=== PATIENT | male | born 1955 | race Caucasian/White ===

== ENCOUNTER → 2020-04-04 15:01 | Outpatient (CLI) | payer MEDICARE, OTHER, SELFPAY ==
[2020-04-04 14:49] VITALS: BMI 31.6
--- NOTE | 2020-04-04 15:05 | RAD_ITS ---
STUDY: X-RAY CHEST REASON FOR EXAM: Male, 65 years old. COUGH AND WHEEZE X MONTH, NO HX SURGERIES OR CA TECHNIQUE: PA and lateral views of the chest. COMPARISON: None. FINDINGS: Hyperinflation. There is a 6.1 cm x 5.1 cm rounded soft tissue density in the superior segment of the left lower lobe. This may represent either a rounded pneumonia versus a mass. Correlation with a CT scan is recommended. There is no demonstrated pleural abnormality. Normal size heart. Normal mediastinum and jasiel. Normal visualized pulmonary arteries. There is atherosclerotic tortuosity of the aortic arch and descending thoracic aorta. There are degenerative changes of the visualized thoracic spine. Normal visualized ribs, clavicles, and shoulders. There is no demonstrated abnormality of the visualized soft tissue structures of the upper abdomen. RAD/Chest PA and Lateral IMPRESSION: 5.1 cm x 6.1 cm rounded density in the superior segment of the left lower lobe. This now extends either a pneumonic infiltrate versus a mass. Correlation with a CT scan is recommended. Electronically Signed: Erwin Humphreys, at 15:24 EDT , Service support ,
--- NOTE | 2020-04-04 15:05 | RAD_ITS ---
STUDY: X-RAY - SOFT TISSUE NECK REASON FOR EXAM: Male, 65 years old. COUGH, RASPY VOICE AND WHEEZE X MONTH, NO HX SURGERIES OR CA TECHNIQUE: AP and lateral view(s) of the neck were obtained. COMPARISON: None. FINDINGS: Normal visualized nasopharynx, oropharynx, hypopharynx. Normal epiglottis. Normal visualized subglottic tracheal air column. Normal prevertebral soft tissue structures. There are degenerative changes of the cervical spine with cervical spondylosis. Multilevel disc space narrowing. Loss of the normal cervical lordosis. Calcification of the carotid bifurcation on the left. Focal calcification of the posterior nuchal ligament RAD/Neck for Soft Tissue IMPRESSION: Straightening of the normal cervical lordosis with multilevel spondylosis and disc space narrowing. Electronically Signed: Erwin Humphreys, at 15:25 EDT , Service support ,
== END ==
PROVIDERS: PCP Family Medicine; Referring Provider Physician Assistant; Visit Provider Physician Assistant
DX: R06.2 Wheezing (principal); R13.10 Dysphagia, unspecified; J04.0 Acute laryngitis
CPT/HCPCS: 70360; 71046

== ENCOUNTER → 2020-04-11 14:29 | Outpatient (CLI) | payer MEDICARE, OTHER, SELFPAY ==
[2020-04-04 14:49] VITALS: BMI 31.6
--- NOTE | 2020-04-11 14:31 | CT_ITS ---
STUDY: CTA CHEST REASON FOR EXAM: Male, 65 years old. LLL MASS ON CXR, HOARSENESS X 1 MONTH RADIATION DOSAGE (If Supplied By Facility): CTDIvol = ( 16.69 ) mGy, DLP = ( 437.44 ) mGycm TECHNIQUE: The examination was performed with the intravenous administration of 100 CC ISOVUE 370. Post-processing of the angiographic images was performed, with multiplanar reformation and 3D reconstruction. Individualized dose optimization techniques were used for this CT. COMPARISON: None. FINDINGS: Normal enhancement of the main pulmonary artery and right and left pulmonary arteries. Normal enhancement of the bilateral peripheral pulmonary arteries. There is no demonstrated pulmonary embolism. Normal thoracic aorta and visualized great vessels. There is no demonstrated aortic dissection. Normal heart and pericardium. There are calcifications of the coronary arteries. There are abnormal enlarged bulky AP window lymph nodes. To the left of the galo there is a combination of soft tissue densities measuring 2.2 x 2.5 cm highly suspicious for metastatic adenopathy. There is also abnormal soft tissue density in the left perihilar region significantly surrounding the left pulmonary artery heading to the left lower lobe best seen on axial images 142 and 143. There is peribronchial thickening. The lungs are well expanded. The lung windows show underlying emphysema with bleb formation in the upper lobes. There is an area of fibrotic scarring in the posterior right upper lobe and a highly suspicious lobulated soft tissue mass in the left lower lobe measuring 4.6 x 5.1 x 5.9 cm which has a subtle tail that connects it to the pleural surface on axial image 140. This is highly suspicious for a primary lung tumor. No suspicious noncalcified mass or nodule seen elsewhere in the lungs. There is dependent atelectasis in the lung bases. Limited cuts through the upper abdomen do not show a suspicious abnormality Bony structures show degenerative change CT/CTA Chest W/WO Contrast IMPRESSION: No demonstrated PE, or thoracic aortic aneurysm or dissection. Highly suspicious 4.6 x 5.1 x 5.9 cm mass in the superior aspect of the left lower lobe. This is significantly narrowing the left lower lobe pulmonary artery. This is a primary neoplastic process until proven otherwise. Bulky suspicious left perihilar and mediastinal adenopathy. Underlying emphysema with chronic interstitial changes and evidence of chronic bronchitis. No other suspicious noncalcified mass or nodule in either lung field, no organized infiltrate. Degenerative bony changes Electronically Signed: Lucien Lundberg MD at 15:34 EDT , Service support ,
[2020-04-11 14:45] LABS: CREATININE FINGERSTICK 0.8 mg/dL (0.70-1.30); EGFR FINGERSTICK > 60.0000 mL/min (>60)
== END ==
PROVIDERS: PCP Family Medicine; Referring Provider Physician Assistant; Visit Provider Physician Assistant
DX: R91.8 Other nonspecific abnormal finding of lung field (principal)
CPT/HCPCS: 71275; Q9967

== ENCOUNTER 2020-05-11 11:01 | Day surgery (SDC) | payer MEDICARE, OTHER, SELFPAY ==
[2020-04-16 07:50] VITALS: BMI 28.0
--- NOTE | 2020-05-10 09:13 | PCM.HP.STD ---
History of Present Illness Date of Admission: 05/11/20 Chief Complaint: Lung Mass The patient is a 65 year old male who presented initially one month ago to the pulmonary medicine clinic due to the presence of a lung mass. The patient reported that beginning sometime in February he developed a dry cough, rhinorrhea and wheezing, which apparently began shortly after spreading mulch and using spray paint. The patient then went on to develop vocal hoarseness. He utilized a combination of [id number]-[id number] antihistamines which did help somewhat with his symptoms, with the exception of the vocal hoarseness. The patient does have an approximate 69-cppe-zsma smoking history having quit completely in 1996. In addition to his personal smoking history, the patient did grow up in a smoking household. He was previously employed as a parcel post truck driver. In response to the above, the patient was evaluated in the urgent care clinic on April 04 with complaints of laryngitis and cough. As part of his work-up, a plain film chest x-ray was obtained which revealed a 5 x 6 cm masslike density in the left lower lobe. In follow-up, a CTA chest was completed on April 11 which showed no evidence for PE. Nevertheless, there was evidence of bulky mediastinal lymphadenopathy along with a large lobulated mass present in the left lower lobe. Past Medical History Past Medical History (Chronic Problems): Chronic Problems (Last Reviewed 04/16/20 @ 11:04 by Leslie Dunlap) Laryngitis, chronic (Chronic) Medical History: Medical History (Last Reviewed 04/16/20 @ 11:04 by Leslie Dunlap) No pertinent past medical history Z78.9 Allergies prednisone Allergy (Verified 05/03/20 15:53) Unknown Home Medications: Ambulatory Orders Medication Instructions Recorded albuterol sulfate 90 mcg/actuation 1 - 2 puff INHALATION Q6H PRN #8.5 03/28/20 aerosol inhaler g Ascorbic Acid [Vitamin C] 500 mg PO DAILY 05/03/20 Loratadine [Claritin] 10 mg PO DAILY 05/03/20 Multivitamin 1 ea PO DAILY 05/03/20 Graham-3/Dha/Epa/Fish Oil [Fish Oil 1,600 mg PO DAILY 05/03/20 1,600 mg/5 ml Liquid] Surgical History: Surgical History (Last Reviewed 04/16/20 @ 11:04 by Leslie Dunlap) History of arthroscopy of right knee Z98.890 1987 History of back surgery Z98.890 2014 History of cataract extraction Z98.49 left eye, 2018 Smoking Status: Former smoker Review of Systems Constitutional: Denies: Chills, Fever, Weight Change HEENT: Denies: Head Aches, Sinus Congestion, Sinus Drainage Cardiovascular: Denies: Chest Pain, Palpitations Respiratory: Denies: Cough, Shortness of breath at rest, Sputum production Gastrointestinal: Denies: Abdominal Pain, Nausea, Vomiting Genitourinary: Denies: Dysuria Musculoskeletal: Denies: Joint Pain, Joint Tenderness Skin: Denies: Rash, Wounds Neurological: Denies: Numbness, Tingling, Focal weakness Psychiatric: Denies: Anxiety, Depression, Homicidal Ideations, Suicidal Ideations Hematologic/ Lymphatic: Denies: Easy Bruising, Easy Bleeding VTE Information - Inpt Only VTE Present on Admission: No VTE Mechan Device Prophylaxis: None VTE Pharm Prophylaxis ordered?: No Reason prophylaxis not ordered:: Treatment Not Indicated - Physical Exam Vitals/I&O's: Body Mass Index (BMI) 28.0 General: Alert, Cooperative, No apparent distress HEENT: Atraumatic Oral: Moist Mucosa Neck: Supple, Negative Hepatojugular Reflux Lungs: Normal air movement Cardiovascular: Regular rate, Regular Rhythm Abdomen: Bowel Sounds Present, Soft Extremities: No clubbing, No edema Skin: No breakdown Musculoskeletal: No Muscle Wasting Neurological: Neuro grossly intact Psych/Mental Status: Normal Affect Assessment/Plan All Active Problems (Last Reviewed 04/16/20 @ 11:04 by Leslie Dunlap) Mass of lower lobe of left lung (Acute) Reactive airway disease (Acute) Contact with and (suspected) exposure to other hazardous, chiefly nonmedicinal, chemicals (Acute) Assessment & Plan 1. Lung mass R91.8 Plan The patient's most recent CTA chest dated April 11 revealed a sizable left lower lobe lung mass, measuring approximately 5 x 6 cm in size. This mass was associated with bulky mediastinal and left hilar adenopathy. These radiographic findings are certainly concerning for underlying lung malignancy. My suggestion to them was to move forward with direct tissue biopsy (transbronchial needle aspiration) with the assistance of EBUS. Risks and benefits were reviewed and the patient was in agreement to proceed. 2. Nicotine dependence, cigarettes, in remission F17.211 Plan The patient does have an approximate 59-bati-[id number] smoking history, having quit completely in 1996. Ongoing tobacco cessation was strongly recommended.
[2020-05-11] VITALS (7 sets, daily range): BP systolic 109–135; BP diastolic 70–90; PULSE 85–97; RESP 16–20; TEMP 36.8–37.3; O2SAT 94–98; BMI 27.8
--- NOTE | 2020-05-11 | IMM_PTH ---
PATIENT: IVONNE JULIEN LOC: EN U#:[id number] AGE/SX: 65/M ROOM: RE05/11/[address]: Dr. Miguel Camarillo DO : 1955 BED: DIS: 05/11/2020 SPEC #: [id number] RECD: 05/14/20 10:16 STATUS: SOURigo REQ #: [id number] YAZAN: 05/11/20 00:[address]: Miguel Camarillo DEPT: IMMUNOHISTOCHEMISTRY RECD BY: Teresa Baltazar ENTERED: 05/14/20 10:17 SP TYPE: IMMUNO OTHR DR: Dr. Carlos Camarillo DO Tissues: I - Lung, NOS Procedures: NAPSIN A (add) CK20 (add) CK5-6 (add) CK7 (add) CK8 (add) HEP PAR (add) TTF1 (add) Pankeratin (initial) P40 (add) PSAP (add) PHYSICIAN & INSTITUTION [place] [id number] SPECIMEN INFORMATION: Tissue Source: I - EBUS, TBNA, site 4L Clinical Info: Lung mass, mediastinal lymphadenopathy Specimen Number: [id number] I CPT code: 84199, 14735 x10 METHODOLOGY: Deparaffinized sections of prefer/formalin-fixed tissue or PAP/DQ stained slides are incubated with monoclonal/polyclonal antibodies/oligonucleotide probes. Localization is made via biotin free immunoperoxidase method. Appropriate controls are performed and reacted as expected. Results on target cell population are indicated in the following table: RESULTS: ANTIBODY / CLONE RESULT Block I AE1-3 (AE1/AE3/PCK26) positive CK7 (OV-TL12/30) positive CK8 (02bnqkV78) positive CK20 (KS20.8) negative TTF-1 (8G7G3/1) positive Napsin A (Rabbit Polyclonal) positive HepPar (OCh1E5) negative RCC (PN-15) negative PSAP (PASE/4LJ) negative CK5-6 (D5 & 1684) positive, weak P40 (BC28) negative These tests were developed and their performance characteristics determined by [facility]. They may not have been cleared or approved by the U.S. Food and Drug Administration. The FDA has determined that such clearance or approval is not necessary. The above immunohistochemical/dualISH markers are ordered and reviewed by the Pathologist. INTERPRETATION: I. EBUS, TBNA, site 4L: Malignant cells present derived from non-small cell carcinoma, favor adenocarcinoma, consistent with lung primary. SJ:tona 05/15/20
--- NOTE | 2020-05-11 | FLU_PTH ---
PATIENT: IVONNE JULIEN LOC: EN U#:[id number] AGE/SX: 65/M ROOM: RE05/11/[address]: Dr. Miguel Camarillo DO : 1955 BED: DIS: 05/11/2020 SPEC #: [id number] RECD: 05/11/20 13:05 STATUS: SANDRA RE #: [id number] YAZAN: 05/11/20 00:[address]: Miguel Camarillo DEPT: CYTOLOGY RECD BY: Bhargav Wheat ENTERED: 05/11/20 13:07 SP TYPE: Fluid OTHR DR: Dr. Carlos Camarillo DO Tissues: A - Lung, NOS B - Lung, NOS C - Lung, NOS D - Lung, NOS E - Lung, NOS F - Lung, NOS G - Lung, NOS H - Lung, NOS I - Lung, NOS Procedures: FNA Specimen Adequacy Special Stain Group II Surgery Specimen Level IV Cytospin Fluid HEADER OPERATION: EBUS PRE-OP DIAGNOSIS: Lung mass, mediastinal lymphadenopathy TISSUE SUBMITTED: A - EBUS, TBNA, aspiration #1, site 7, B - EBUS, TBNA, aspiration #2, site 7, C - EBUS, TBNA, aspiration #3, site 7, D - EBUS, TBNA, aspiration #4, site 7, E - EBUS, TBNA, aspiration #5, site 4L, F - EBUS, TBNA, aspiration #6, site 4L, G - EBUS, TBNA, aspiration #7, site 4L, H - EBUS, TBNA, site 7, I - EBUS, TBNA, site 4L DIAGNOSIS CYTOLOGY A. EBUS, TBNA, aspiration #1, site 7: Adequate for evaluation. Negative for malignant cells. Lymphocytes present. B. EBUS, TBNA, aspiration #2, site 7: One cluster of atypical cell noted, highly suspicious for malignant cells derived from non-small cell carcinoma. Predominantly blood, rare lymphocytes and respiratory epithelial cells noted. C. EBUS, TBNA, aspiration #3, site 7: Rare clusters of atypical cell noted, highly suspicious for malignant cells derived from non-small cell carcinoma. Adequate for evaluation. D. EBUS, TBNA, aspiration #4, site 7: Adequate for evaluation. Negative for malignant cells. Lymphocytes present. E. EBUS, TBNA, aspiration #5, site 4L: Positive for malignant cells derived from non-small cell carcinoma. F. EBUS, TBNA, aspiration #6, site 4L: Positive for malignant cells derived from non-small cell carcinoma. G. EBUS, TBNA, aspiration #7, site 4L: Positive for malignant cells derived from non-small cell carcinoma. H. EBUS, TBNA, site 7, fluid (cell block): Malignant cells present derived from non-small cell carcinoma. I. EBUS, TBNA, site 4L, fluid (cell block): Malignant cells present derived from non-small cell carcinoma, favor adenocarcinoma, consistent with lung primary. See comment. GEM:tona 05/14/20 COMMENT The specimen is evaluated at the time of procedure by Dr. Agee. Immediate evaluation: A. EBUS, TBNA, aspiration #1, site 7: Adequate for evaluation. Negative for malignant cells. Lymphocytes present. B. EBUS, TBNA, aspiration #2, site 7: Predominantly blood, rare lymphocytes and respiratory epithelial cells noted. Negative for malignant cells. C. EBUS, TBNA, aspiration #3, site 7: Adequate for evaluation. Negative for malignant cells. Lymphocytes present. D. EBUS, TBNA, aspiration #4, site 7: Adequate for evaluation. Negative for malignant cells. Lymphocytes present. E. EBUS, TBNA, aspiration #5, site 4L: Positive for malignant cells derived from non-small cell carcinoma. F. EBUS, TBNA, aspiration #6, site 4L: Positive for malignant cells derived from non-small cell carcinoma. G. EBUS, TBNA, aspiration #7, site 4L: Positive for malignant cells derived from non-small cell carcinoma. I. Immunohistochemistry ([id number]) supports the above diagnosis. A fragments of cartilage is also noted. Molecular studies on the tumor can be performed if clinically indicated. Please notify the laboratory if they are needed. Case has been reviewed in consultation with Dr. Dahl who concurs with the above diagnosis. IDC:AM CYTOLOGY STUDY Slides are reviewed. CYTOLOGY GROSS A - Received labeled with the patient's name and and designated EBUS, TBNA, aspiration #1, site 7. The specimen consists of two smears. The smears are submitted for immediate cytologic evaluation (wet read). B - Received labeled with the patient's name and and designated EBUS, TBNA, aspiration #2, site 7. The specimen consists of two smears. The smears are submitted for immediate cytologic evaluation (wet read). C - Received labeled with the patient's name and and designated EBUS, TBNA, aspiration #3, site 7. The specimen consists of two smears. The smears are submitted for immediate cytologic evaluation (wet read). D - Received labeled with the patient's name and and designated EBUS, TBNA, aspiration #4, site 7. The specimen consists of two smears. The smears are submitted for immediate cytologic evaluation (wet read). E - Received labeled with the patient's name and and designated EBUS, TBNA, aspiration #5, site 4L. The specimen consists of two smears. The smears are submitted for immediate cytologic evaluation (wet read). F - Received labeled with the patient's name and and designated EBUS, TBNA, aspiration #6, site 4L. The specimen consists of two smears. The smears are submitted for immediate cytologic evaluation (wet read). G - Received labeled with the patient's name and and designated EBUS, TBNA, aspiration #7, site 4L. The specimen consists of two smears. The smears are submitted for immediate cytologic evaluation (wet read). H - Received is 30 ml of red, cloudy fluid in RPMI labeled with the patient's name and and designated EBUS, TBNA, site 7, submitted for cell block preparation. I - Received is 30 ml of red, cloudy fluid in RPMI labeled with the patient's name and and designated EBUS, TBNA, site 4L, submitted for cell block preparation. / SJ:tona 05/11/20 TC:0 CPT: 91269 x2, 00529 x2, 99740 x2, 74590 x5 ADDENDUM ADDENDUM ADDENDUM ADDENDUM ADDENDUM ADDENDUM 05/24/2020 09:00 ADDENDUM 05/24/2020 09:00 ADDENDUM 05/24/2020 09:00 ADDENDUM 05/24/2020 09:00 ADDENDUM 05/24/2020 09:00 ADDENDUM 08/21/2020 11:02 PD-L1 (KEYTRUDA) IMMUNOHISTOCHEMICAL ANALYSIS FROM [facility] Tumor proportion score: <1% / Negative Please see complete report in e-chart or EMR for complete details ONKOSIGHT NEXT GENERATION SEQUENCING GENE FUSION PANEL FROM [facility] INTERPRETATION: NEGATIVE: No pathogenic gene fusions detected involving AKT1, ALK, ARTHUR, BRAF, CCND1, EGFR, FGFR1, FGFR2, FGFR3, MET, NRG1, NTRK1,NTRK2, NTRK3, PPARG, RAF1, RET, ROS1 or THADA. RESULTS: Tumor cellularity: >50% Tumor type: Suspected non-small cell carcinoma Please see complete report in e-chart or EMR
[2020-05-11] MEDS: Lactated Ringers 1,000 ML 100 ML IV (11:34)
[2020-05-11 11:39] LABS: Hematocrit 47.7 % (40-54); Hemoglobin 15.9 g/dL (13.0-16.5); Mean Corp Hgb Conc 33.3 g/dL (32-36); Mean Corpuscular Hgb 30.8 pg (27.0-32.0); Mean Corpuscular Volume 92.4 fL (80-94); Mean Platelet Vol. 9.3 fl (6.2-12.0); Platelet Count 231 K/mm3 (150-450); RBC Distribution Width CV 13.4 % (11.6-14.6); RBC Distribution Width SD 45.2 fl (35.1-43.9); Red Blood Count 5.16 M/mm3 (4.6-6.2); White Blood Count 10.6 K/mm3 (4.4-11.0)
[2020-05-11 11:50] LABS: International Normalized Ratio 1.1; Prothrombin Time (Protime)PT. 13.7 SECONDS (11.7-14.9)
[2020-05-11 12:09] LABS: Partial Thromboplast Time 27.4 Seconds (24.1-36.2)
[2020-05-11] MEDS: Lidocaine 2% Jelly 1 APPLIC Tube (12:30)
--- NOTE | 2020-05-11 13:05 | OP.BRONCH_ITS ---
Patient Name: Marcus Royal Procedure Date: 05/11/2020 11:07 AM Date of : 1955 Age: 65 Procedure: Bronchoscopy Indications: Mediastinal adenopathy Providers: Miguel Camarillo MD Referring MD: Carlos Camarillo Medicines: General Anesthesia Complications: No immediate complications Procedure: Pre-Anesthesia Assessment: - A History and Physical has been performed. Patient meds and allergies have been reviewed. The risks and benefits of the procedure and the sedation options and risks were discussed with the patient. All questions were answered and informed consent was obtained. Patient identification and proposed procedure were verified prior to the procedure by the physician and the nurse in the procedure room. Mental Status Examination: alert and oriented. Airway Examination: normal oropharyngeal airway. Respiratory Examination: clear to auscultation. CV Examination: normal. ASA Grade Assessment: II - A patient with mild systemic disease. After reviewing the risks and benefits, the patient was deemed in satisfactory condition to undergo the procedure. The anesthesia plan was to use general anesthesia. Immediately prior to administration of medications, the patient was re-assessed for adequacy to receive sedatives. The heart rate, respiratory rate, oxygen saturations, blood pressure, adequacy of pulmonary ventilation, and response to care were monitored throughout the procedure. The physical status of the patient was re-assessed after the procedure. After I obtained informed consent, the scope was passed under direct vision. Throughout the procedure, the patient's blood pressure, pulse, and oxygen saturations were monitored continuously. The ultrasound bronchoscope was introduced through the mouth, via laryngeal mask airway and advanced to the tracheobronchial tree. The procedure was accomplished without difficulty. The patient tolerated the procedure well. Findings: The nasopharynx/oropharynx appears normal. The larynx appears normal. The vocal cords appear normal. The subglottic space is normal. The trachea is of normal caliber. The galo is sharp. The tracheobronchial tree of the right lung was examined to at least the first subsegmental level. Bronchial mucosa and anatomy in the right lung are normal; there are no endobronchial lesions, and no secretions. Left Lung Abnormalities: Extrinsic compression was found in the left lower lobe. The airway lumen is about 75% occluded. The lesion was not traversed. The scope was withdrawn and replaced with the EBUS bronchoscope to accomplish the ultrasound examination. Lymph Nodes: An endobronchial ultrasound endoscope was utilized to systematically examine the left lower paratracheal region (level 4L) and subcarinal mediastinum (level 7) in order to assist with fine needle aspiration. Lymph node sizing was performed via endobronchial ultrasound for suspected lung cancer. Sampling by transbronchial needle aspiration was also performed using an Olympus EBUS-TBNA 19 gauge needle in the left lower paratracheal region (level 4L) and subcarinal mediastinum (level 7) and sent for routine cytology. - The 7 (subcarinal) node was evaluated. Four samples with the needle were obtained. - The 4L (lower paratracheal) node was evaluated. Three samples with the needle were obtained. Lymph Nodes: Rapid On-Site Evaluation (MCKENZIE): Preliminary cytology was suggestive of a benign lesion (final results are pending) in the subcarinal mediastinum (level 7). Preliminary cytology was suggestive of non small cell carcinoma (final results are pending) in the left lower paratracheal region (level 4L). Impression: - Extrinsic compression was found in the left lower lobe. - The airway examination of the right lung was normal. - Mediastinal adenopathy - Endobronchial ultrasound was performed. - Lymph node sizing and sampling was performed. - Rapid On-Site Evaluation (MCKENZIE): Preliminary cytology was suggestive of a benign lesion in node level 7 and of non small cell carcinoma in node level 4L (final results are pending). Recommendation: - Await cytology results. Procedure Code(s): --- Professional --- 57142, Bronchoscopy, rigid or flexible, including fluoroscopic guidance, when performed; with endobronchial ultrasound (EBUS) guided transtracheal and/or transbronchial sampling (eg, aspiration[s]/biopsy[ies]), one or two mediastinal and/or hilar lymph node stations or structures Diagnosis Code(s): --- Professional --- R59.0, Localized enlarged lymph nodes R09.89, Other specified symptoms and signs involving the circulatory and respiratory systems J98.4, Other disorders of lung CPT copyright 2017 [employer]. All rights reserved. The codes documented in this report are preliminary and upon cable braider review may be revised to meet current compliance requirements. DO Miguel Palumbo MD 05/11/2020 1:05:22 PM This report has been signed electronically. Number of Addenda: 0 Note Initiated On: 05/11/2020 11:07 AM
== END 2020-05-11 14:45 | disposition home or self-care (01) ==
LOC: EN 11:02 → AC 11:14
PROVIDERS: Anesthesiology; PCP Family Medicine; Referring Provider Family Medicine; Visit Provider Internal Medicine Critical Care Medicine
PROC: BB4BZZZ Ultrasonography of Pleura (ICD-10-PCS; CPT 31628; principal; 2020-05-11 11:30)
DX: C34.90 Malignant neoplasm of unspecified part of unspecified bronchus or lung (principal); R59.0 Localized enlarged lymph nodes; R09.89 Other specified symptoms and signs involving the circulatory and respiratory systems; J98.4 Other disorders of lung; J45.909 Unspecified asthma, uncomplicated; R91.8 Other nonspecific abnormal finding of lung field; R49.0 Dysphonia; J37.0 Chronic laryngitis; Z88.8 Allergy status to other drugs, medicaments and biological substances; F17.211 Nicotine dependence, cigarettes, in remission
CPT/HCPCS: 31628; 31652; 85027; 85610; 85730; 87635; 88108; 88172; 88305; 88313; 88341; 88342; G2023; J7120; U0003

== ENCOUNTER 2020-07-19 19:53 | Emergency (ER) | payer MEDICARE, OTHER, SELFPAY ==
[2020-05-11 11:21] VITALS: BMI 27.8
[2020-07-19 19:54] VITALS: BP 124/90; PULSE 117; RESP 18; TEMP 36.9; O2SAT 96; BMI 26.6
--- NOTE | 2020-07-19 21:48 | CT_ITS ---
STUDY: CT LUMBAR SPINE WITH AND WITHOUT CONTRAST REASON FOR EXAM: Male, 65 years old. LOW BACK PAIN RADIATING TO LT HIP AND LEG -- HX:LUNG CANCER RADIATION DOSAGE (If Supplied By Facility): CTDIvol = ( 14.04 ) mGy, DLP = ( 829.81 ) mGycm TECHNIQUE: The patient was scanned in a multi detector CT scanner. High resolution transaxial imaging was performed following the intravenous administration of 100ML ISOVUE 300. Images were obtained from T12 to S1. Sagittal and coronal images were reconstructed. Individualized dose optimization techniques were used for this CT. COMPARISON: None FINDINGS: There is straightening of the normal lumbar lordosis. Slight levocurvature of the lumbar spine. Negative for fracture. There is a discrete osteolytic zone at the L2 level that is occurring at the junction of the lamina and at the base of the spinous process, potential osteolytic bone lesion. This is approximately 9 x 5 x 9 mm in size and does not appear to be associated with a pathologic fracture L1-2: Mild degenerative disc and joint changes without central stenosis or foraminal narrowing. L2-3: Mild disc narrowing. Mild circumferential annulus bulge. Mild to moderate facet hypertrophy and hypertrophy of posterior ligaments resulting in spinal stenosis, narrowing of the lateral recesses with mild bilateral foraminal narrowing. L3-4: Advanced disc narrowing. Small circumferential annulus bulge. Mild posterior facet arthrosis and hypertrophy without central stenosis. Narrowing of the lateral recesses and mild bilateral foraminal narrowing. L4-5: Mild disc narrowing. [id number] facet arthrosis and hypertrophy. Mild annulus bulge. Negative for central stenosis. Narrowing of the lateral recesses with mild bilateral foraminal narrowing. L5-S1: Advanced disc narrowing. Mild posterior facet arthrosis. Mild posterior disc osteophyte without central stenosis. Bilateral mild foraminal narrowing. Fusiform dilatation of the infrarenal aorta with a maximum diameter of 3.4 cm. Mass density of the medial left upper quadrant anterior and just above the left kidney compatible with a large adrenal mass. The right adrenal mass is generally thickened. CT/Spine Lumbar W/WO Contrast IMPRESSION: Straightening of the lumbar spine with otherwise normal alignment. Negative for fracture. 9 x 5 x 9 mm lytic lesion of L2 occurring at the junction of the lamina and base of the spinous process which is not associated with a pathological fracture. Potential metastatic lesion considering the history. However, this could be a benign lesion such as hemangioma. Degenerative disc and joint changes as stated above. Mass density of the medial left upper quadrant anterior and just above the left kidney compatible with a large adrenal mass and general thickening of the right adrenal gland, potential metastatic disease. 3.4 cm fusiform aneurysmal dilatation of the infrarenal aorta. Electronically Signed: Nathalai Martinez MD at 23:53 EDT , Service support ,
[2020-07-19] MEDS: Ondansetron 4 MG/2 ML Vial IV (22:00)
[2020-07-19] MEDS: 0.9% Normal Saline 1,000 ML 1000 ML IV (22:00)
[2020-07-19] MEDS: Morphine 4 MG/ML Syringe IV (22:00)
[2020-07-19 22:01] LABS: Absolute Lymphocyte Count 2.08 X10^3/uL (0.83-4.51); Absolute Neutrophil Count 9.3 X10^3/uL (2.0-7.7); Basophil# 0.08 X10^3/uL; Basophil% 0.6 % (0-1); Eosinophils% 8.4 % (0-5); Hematocrit 44.2 % (40-54); Hemoglobin 14.6 g/dL (13.0-16.5); Lymphocyte # 2.08 X10^3/ul (4.0); Lymphocyte % 14.5 % (19-41); Mean Corpuscular Hgb 29.7 pg (27.0-32.0); Monocyte# 1.53 X10^3/uL; Monocyte% 10.7 % (0-10); NRBC Flagged by Analyzer 0 % (0-5); Neutrophil # 9.33 X10^3/uL (2.7-7.7); Neutrophil % 65.2 % (47-70); POSITIVE DIFFERENTIAL YES; Platelet Count 272 K/mm3 (150-450); RBC Distribution Width CV 12.5 % (11.6-14.6); RBC Distribution Width SD 41.1 fl (35.1-43.9); Red Blood Count 4.91 M/mm3 (4.6-6.2); White Blood Count 14.3 K/mm3 (4.4-11.0)
[2020-07-19 22:05] LABS: Differential Indicated SCAN CRITERIA MET
[2020-07-19 22:09] LABS: International Normalized Ratio 1.2; Partial Thromboplast Time 29.5 Seconds (24.1-36.2); Prothrombin Time (Protime)PT. 14.8 SECONDS (11.7-14.9)
[2020-07-19 22:11] LABS: Bacteria 0 SEEN /hpf (None Seen); Mucous, Urine 0 SEEN /hpf (<or=2+); Red Blood Cells-Urine 0 SEEN /hpf (0-5); Squamous Epithelial Cells - UA 0 SEEN /hpf (0-5); White Blood Cells 0 SEEN /hpf (0-5)
[2020-07-19 22:12] LABS: Color, Urine Yellow (Yellow); Glucose, Dipstick Normal (Normal); Ketone-Dipstick 15 mg/dl (Negative); Leukocyte Esterase-Dipstick Negative /ul (Negative); Nitrite-Dipstick Negative (Negative); Occult Blood-Urine Negative /ul (Negative); Protein-Dipstick Negative (Negative); Urine Bilirubin Dipstick Negative (Negative); Urine Clarity Sl. Cloudy (Clear); Urine Urobilinogen Normal (Normal)
[2020-07-19 22:14] LABS: Anion Gap 8 (5-15); BUN 8 mg/dL (7-18); BUN/Creat Ratio 12.3 RATIO (10-20); Calcium,Total 8.9 mg/dL (8.5-10.1); Chloride 104 mmol/L (98-107); Creatinine, Serum 0.65 mg/dL (0.70-1.30); EST Glomerular Filtration Rate 130 mL/min (>60); Est Glom Filt Rate - Afr Amer 158 mL/min (>60); Estimated Creatinine Clearance 72.66 ml/min; Glucose 101 mg/dL (74-106); Potassium 3.9 mmol/L (3.5-5.1); Sodium Level 136 mmol/L (136-145)
[2020-07-19 22:32] LABS: Anisocytosis RARE; Macrocytosis RARE; Platelet Estimate ADEQUATE (ADEQ); Red Cell Morphology N CHROM NORMAL (NORM C&C)
[2020-07-19] MEDS: fentaNYL 100 MCG/2 ML Ampul 50 MCG IV (22:48)
--- NOTE | 2020-07-19 23:09 | ED.VIS.GEN ---
History of Present Illness Chief Complaint: Back Informant: Patient Onset: Month(s) - 1 Narrative: Patient presenting with progressive lower back pain for the past month. Symptoms actually worsen over last 4days. Denies trauma. Pain radiates to his left thigh with mild numbness. No loss of bowel or bladder control. History of spinal stenosis with surgery years ago which is L4-L5 per patient. Denies fever. He has seen a chiropractor for this with no relief. In addition reports he was diagnosed with non-small cell lung cancer this past April electing for homeopathic therapy. He is being followed by his PCP. He did not do further testing with any PET scans. Denies any urinary symptoms. Prior similar symptoms: No Past Medical History - Allergies and Home Meds Allergies/Adverse Reactions: Allergies prednisone Allergy (Verified 07/19/20 19:57) Unknown Primary Care Physician: Carlos Camarillo DO [Primary Care Provider] - Past Medical History: - - Recent non-small cell lung cancer Smoking Status: Former smoker Review of Systems General: Denies: Chills, Fever, Sweats Eyes: Denies: Visual changes - bilaterally, Diplopia ENT: Denies: Rhinorrhea, Sore throat Cardiovascular: Denies: Chest pain, Palpitations Respiratory: Denies: Dyspnea, Cough, Dyspnea on exertion Gastrointestinal: Denies: Abdominal pain, Nausea, Vomiting, Diarrhea, Melena, Hematochezia Genitourinary: Denies: Dysuria, Hematuria, Frequency Musculoskeletal: Reports: Back pain. Denies: Extremity Pain Skin: Denies: Rash, Wounds Neurological: Denies: Headache, Weakness, Numbness Physical Exam Vital Signs/Narrative: Vital Signs Temp Pulse Resp BP Pulse Ox 07/19/20 19:54 98.5 F 117 H 18 124/90 H 96 Inital Vital Signs reviewed: Yes General: Well nourished, Well developed, - - Uncomfortable laying in bed. Head: Normocephalic, Atraumatic Eyes: Perrl, EOMI ENT: Moist mucous membranes, No rhinorrhea Neck: Supple, Nontender Cardiovascular: Regular rate, Regular rhythm, No murmurs, Tachycardia Respiratory: No distress, CTA bilaterally, Chest nontender Abdomen: Soft, Nontender, Nondistended, Normal bowel sounds Back: Nontender, Normal Inspection Extremities: Nontender, No edema Skin: Normal color, No rash Neurological: Alert, Oriented x3, Cranial nerves II-XII grossly intact, Normal Strength, Normal Sensation Psychological: Normal affect, Normal Mood Diagnostic/Tx/Re-eval Abnormal Lab Results 07/19/20 07/19/20 07/19/20 21:53 21:53 21:53 WBC 14.3 H RBC 4.91 Hgb 14.6 Hct 44.2 MCV 90.0 MCH 29.7 MCHC 33.0 RDW Std Deviation 41.1 RDW Coeff of Sudarshan 12.5 Plt Count 272 MPV 9.0 Immature Gran % (Auto) 0.600 Neut % (Auto) 65.2 Lymph % (Auto) 14.5 L Rock % (Auto) 10.7 H Eos % (Auto) 8.4 H Baso % (Auto) 0.6 Absolute Neuts (auto) 9.3 H Absolute Lymphs (auto) 2.08 Nucleated RBC % 0 Differential Comment SEE COMMENT Diff Path Review May foll Platelet Estimate ADEQUATE RBC Morphology N CHROM Anisocytosis RARE Macrocytosis RARE PT 14.8 INR 1.2 APTT 29.5 Sodium 136 Potassium 3.9 Chloride 104 Carbon Dioxide 24.0 Anion Gap 8 BUN 8 Creatinine 0.65 L Estim Creat Clear Calc 72.66 Est GFR (MDRD) Af Amer 158 Est GFR (MDRD) Non-Af 130 BUN/Creatinine Ratio 12.3 Glucose 101 Calcium 8.9 Urine Color Urine Clarity Urine pH Ur Specific [place] Urine Protein Urine Glucose (UA) Urine Ketones Urine Occult Blood Urine Nitrite Urine Bilirubin Urine Urobilinogen Ur Leukocyte Esterase Urine RBC Urine WBC Ur Squamous Epith Cells Urine Bacteria Urine Mucus 07/19/20 22:00 WBC RBC Hgb Hct MCV MCH MCHC RDW Std Deviation RDW Coeff of Sudarshan Plt Count MPV Immature Gran % (Auto) Neut % (Auto) Lymph % (Auto) Rock % (Auto) Eos % (Auto) Baso % (Auto) Absolute Neuts (auto) Absolute Lymphs (auto) Nucleated RBC % Differential Comment Diff Path Review Platelet Estimate RBC Morphology Anisocytosis Macrocytosis PT INR APTT Sodium Potassium Chloride Carbon Dioxide Anion Gap BUN Creatinine Estim Creat Clear Calc Est GFR (MDRD) Af Amer Est GFR (MDRD) Non-Af BUN/Creatinine Ratio Glucose Calcium Urine Color Yellow Urine Clarity Sl. Cloudy Urine pH 6.0 Ur Specific [place] 1.010 Urine Protein Negative Urine Glucose (UA) Normal Urine Ketones 15 H Urine Occult Blood Negative Urine Nitrite Negative Urine Bilirubin Negative Urine Urobilinogen Normal Ur Leukocyte Esterase Negative Urine RBC 0 SEEN Urine WBC 0 SEEN Ur Squamous Epith Cells 0 SEEN Urine Bacteria 0 SEEN Urine Mucus 0 SEEN - Medical Decision Making Patient worsening back pain with radicular symptoms down the left leg. No cauda equina symptoms. With this discomfort is treated with morphine IV fluids. Labs stable slight leukocytosis of 14. Due to his recent diagnosis of non-small cell lung cancer, CT lumbar spine ordered with and without contrast for further evaluation. He has no cauda equina symptoms warrants emergent MRI at this time. He require additional fentanyl for pain control prior to the CT scan. He is signed out to night physician to follow-up on imaging and disposition. ED Disposition - Plan for ED Patient: Diagnosis: Sciatica, left side, Non-small cell lung cancer Referrals: Carlos Camarillo DO [Primary Care Provider] -
--- NOTE | 2020-07-20 00:08 | ED.VISSUMM ---
- ER Visit Summary Date of Service: 07/20/20 Clinical Impression(s) from Imaging Studies Lumbar Spine CT 07/19/20 21:48 IMPRESSION: Straightening of the lumbar spine with otherwise normal alignment. Negative for fracture. 9 x 5 x 9 mm lytic lesion of L2 occurring at the junction of the lamina and base of the spinous process which is not associated with a pathological fracture. Potential metastatic lesion considering the history. However, this could be a benign lesion such as hemangioma. Degenerative disc and joint changes as stated above. Mass density of the medial left upper quadrant anterior and just above the left kidney compatible with a large adrenal mass and general thickening of the right adrenal gland, potential metastatic disease. 3.4 cm fusiform aneurysmal dilatation of the infrarenal aorta. Electronically Signed: Nathalia Martinez MD at 23:53 EDT , Service support , Emergency Department Course and Treatment: The patient was signed out to me for review of his CT. There is evidence of a lytic lesion at L2 at the junction of the lamina. There is no pathologic fracture. The patient's pain is very well controlled. I did discuss these results with him. He wants to attempt outpatient therapy. He has no evidence of cauda equina. He does have some lateral numbness, but no weakness. The patient will be treated with a short course of analgesics. He was counseled on concerning symptoms and reasons to return. He will be discharged home. Treatment Plan: [] Disposition: Discharge Impression: L2 lytic lesion with back pain This note was generated with [employer] dictation software. It may contain incorrect words, spelling, and punctuation that were not noted in review of the chart prior to signing ED Disposition - Plan for ED Patient: Diagnosis: Sciatica, left side, Non-small cell lung cancer Instructions: ED Back Pain Acute or Chronic Prescriptions: Hydrocodone Bitart/Apap 5-325 [[place] 5MG-325MG] 1 tab PO Q6H PRN PRN 3 Days #10 tab PRN Reason: Pain Prescription Printed Referrals: Carlos Camarillo, [Primary Care Provider] -
[2020-07-20 00:22] VITALS: BP 133/76; PULSE 122; RESP 16; O2SAT 92
[2020-07-20 12:26] LABS: Pathologist Review Reviewed
== END 2020-07-20 00:22 | disposition home or self-care (01) ==
PROVIDERS: Emergency Provider Emergency Medicine; PCP Family Medicine
DX: M54.42 Lumbago with sciatica, left side (principal); C34.92 Malignant neoplasm of unspecified part of left bronchus or lung; Z87.891 Personal history of nicotine dependence
CPT/HCPCS: 72133; 80048; 81001; 85025; 85610; 85730; 96361; 96374; 96375; 99283; J2405

== ENCOUNTER → 2020-07-25 10:58 | Outpatient (CLI) | payer MEDICARE, OTHER, SELFPAY ==
[2020-07-19 19:54] VITALS: BMI 26.6
--- NOTE | 2020-07-25 11:00 | MRI_ITS ---
STUDY: MRI LUMBAR SPINE WITHOUT CONTRAST REASON FOR EXAM: Male, 65 years old. intractable back pain, hx non small cell lung ca, prior lumbar surgery 2013 TECHNIQUE: Standardized fat and water weighted pulse sequences were obtained in the sagittal and axial planes. COMPARISON: 07/19/2020 FINDINGS: T12-L1: Normal endplates. Normal disc height, hydration and morphology. Normal bilateral facet joints. Normal central canal and bilateral lateral recesses. Normal bilateral intervertebral neural foramina. Normal lumbar lordosis. Mild levoscoliosis. Normal conus medullaris that terminates at the L1/L2. There are marrow replacing lesions of the spinous process of T12, the posterior body of L2, the pedicles of L2, and the spinous process of L2 worrisome for metastatic disease. L1-2: Normal endplates. Normal disc height, hydration and morphology. Normal bilateral facet joints. Normal central canal and bilateral lateral recesses. Normal bilateral intervertebral neural foramina. L2-3: Mild bilateral facet hypertrophy and moderate ligament flavum hypertrophy. No disc protrusion. There is abnormal hyperintensity surrounding the posterior aspect of the thecal sac with significant compression of the thecal sac which is flattened to 4 mm in AP diameter with crowding of nerve roots worrisome for epidural of the tumor infiltration or possibly infection. There is edema of the adjacent paraspinous musculature. Correlation with MRI with contrast is recommended. L3-4: Mild bilateral facet hypertrophy. Moderate broad disc protrusion asymmetric to the right produces moderate spinal stenosis with moderate bilateral lateral recess stenosis with abutment of the L4 nerve roots bilaterally and moderate bilateral neural foraminal stenosis with abutment of the exiting L3 nerve roots bilaterally. L4-5: Mild bilateral facet hypertrophy and ligament flavum hypertrophy. Mild broad disc protrusion produces mild spinal stenosis and mild bilateral neural foraminal stenosis. L5-S1: Mild bilateral facet hypertrophy with fluid in the facet joints consistent with instability. 2 mm retrolisthesis of L5 on S1 with a mild broad disc protrusion produces mild spinal stenosis and moderate bilateral neural foraminal stenosis. Normal visualized sacral ala. 3.2 cm aneurysm of the infrarenal abdominal aorta. MRI/Spine Lumbar (Routine) IMPRESSION: 1. Suspect metastatic disease to the L2 vertebra involving the posterior vertebral body, pedicles, lamina, and spinous process with epidural tumor producing severe spinal stenosis and effacement of the thecal sac. Alternatively this could represent infection. Clinical correlation and correlation with MRI with contrast would be useful. 2. Moderate degenerative disc disease as described above. 3. 3.2 cm abdominal aortic aneurysm. Electronically Signed: Jamin Trevino MD at 12:40 EDT Tel , Service support ,
== END ==
PROVIDERS: PCP Family Medicine; Referring Provider Family Medicine; Visit Provider Family Medicine
DX: M54.5 Low back pain (principal)
CPT/HCPCS: 72148

== ENCOUNTER 2020-07-30 10:03 | Inpatient (IN) | payer MEDICARE, OTHER, SELFPAY ==
[2020-07-30] VITALS (16 sets, daily range): BP systolic 99–123; BP diastolic 61–108; PULSE 92–161; RESP 13–28; TEMP 35.6–36.6; O2SAT 74–99; BMI 25.8; BMI 25.5; BMI 26.0; BMI 26.1
--- NOTE | 2020-07-30 10:23 | EKG12_ITS ---
Test Reason : PALPITATIONS Blood Pressure : / mmHG Vent. Rate : 175 BPM Atrial Rate : 322 BPM P-R Int : 000 ms QRS Dur : 088 ms QT Int : 268 ms P-R-T Axes : 000 -73 093 degrees QTc Int : 457 ms Atrial flutter with variable A-V block with premature ventricular or aberrantly conducted complexes Left axis deviation Abnormal ECG Confirmed by HAYES WEAVER, VINH ([id number]), digital editor VELIA RADER ([id number]) on 08/06/2020 8:37:19 A M Referred By: LAWRENCE/MAKENZIE Confirmed By:TO KOO MD
--- NOTE | 2020-07-30 10:32 | ED.DCSUM_ITS ---
History of Present Illness Chief Complaint: Palpitations Informant: Patient Narrative: 65-year-old male with past medical history of adenocarcinoma recently diagnosed approximately 4 months ago presents with concern for shortness of breath and rapid heart rate. Patient was sent in by his oncologist today who found him to have a fast irregular heart rhythm. Patient began having worsening shortness of breath this morning. Worse on exertion. Denies any chest pain. Patient was somewhat recently diagnosed with an L2 metastasis without protrusion into the spinal canal. States that he does have intermittent pain in his back from this which she describes as sharp and nonradiating. Denies any new numbness or tingling at this time. Denies any history of DVT or pulmonary embolism. Patient is not currently anticoagulated. Past Medical History - Allergies and Home Meds Allergies/Adverse Reactions: Allergies prednisone Allergy (Verified 07/30/20 10:12) Unknown Prior records reviewed: Yes Past Medical History: - - lung adenocarcinoma Lives: With Family Smoking Status: Former smoker Alcohol: None Drugs: None Review of Systems General: Denies: Chills, Fever, Sweats Eyes: Denies: Visual changes - bilaterally, Diplopia ENT: Denies: Rhinorrhea, Sore throat Cardiovascular: Denies: Chest pain, Palpitations Respiratory: Reports: Dyspnea. Denies: Cough, Dyspnea on exertion Gastrointestinal: Denies: Abdominal pain, Nausea, Vomiting, Diarrhea, Melena, Hematochezia Genitourinary: Denies: Dysuria, Hematuria, Frequency Musculoskeletal: Reports: Back pain. Denies: Extremity Pain Skin: Denies: Rash, Wounds Neurological: Denies: Headache, Weakness, Numbness Physical Exam Vital Signs/Narrative: Vital Signs Temp Pulse Resp BP Pulse Ox 07/30/20 10:04 96.1 F L 161 H 22 H 119/62 95 Inital Vital Signs reviewed: Yes General: Well nourished, Well developed, No Acute Distress Head: Normocephalic, Atraumatic Eyes: Perrl, EOMI ENT: Moist mucous membranes, No rhinorrhea Neck: Supple, Nontender Cardiovascular: No murmurs, Irregular, Tachycardia Respiratory: No distress, CTA bilaterally, Chest nontender Abdomen: Soft, Nontender, Nondistended, Normal bowel sounds Back: Normal Inspection, - - midline tenderness in upper lumbar spine. Extremities: Nontender, No edema Skin: Normal color, No rash Neurological: Alert, Oriented x3, Cranial nerves II-XII grossly intact, Normal Strength, Normal Sensation Psychological: Normal affect, Normal Mood Diagnostic/Tx/Re-eval - Rhythm Strip Rhythm Strip: Irregular tachyarrythmia Rate: 175 - EKG Initial EKG Interpretation: - - Irregular atrial arrhythmia likely atrial flutter with a variable block. Rate of 175. QTC of 457. ST abnormality likely secondary to rate. Follow-up EKG Interpretation: Sinus Tachycardia - Sinus tachycardia at 105 bpm. AR and QTC within normal limits. No evidence of ST elevation or depression at this time. - Medical Decision Making Patient presents with tachycardia as well as dyspnea. Patient was given morphine, Zofran, fluid bolus, 20 mg of Cardizem. Patient was taken to CTA which shows a obstructive pneumonitis. No evidence of pulmonary embolism. Patient desaturating to 75%. Patient was given Rocephin and azithromycin given an 18,000 white count as well as dyspnea. Radiation oncology to see the patient in the emergency department. They requested 4 mg 3 times daily of decadron. Pain is currently controlled. Heart rate down to 110 bpm. Patient requiring 2 to 3 L by nasal cannula. Patient will be admitted for further treatment and evaluation. Impression: 1. Post-obstructive pneumonitis 2. History of adenocarcinoma 3. Atrial flutter vs. fibrillation - resolved 4. Hypoxemia 5. Back pain s/p L2 metastatic disease - Critical Care Time Critical care time (excluding procedures): 30-74 minutes ED Disposition - Plan for ED Patient: Disposition: Acute Care Hospital [facility]
[2020-07-30 10:40] LABS: Absolute Lymphocyte Count 1.72 X10^3/uL (0.83-4.51); Basophil# 0.12 X10^3/uL; Basophil% 0.7 % (0-1); Eosinophil# 1.77 X10^3/uL; Hematocrit 48.3 % (40-54); Hemoglobin 15.8 g/dL (13.0-16.5); Lymphocyte # 1.72 X10^3/ul (4.0); Lymphocyte % 9.8 % (19-41); Mean Corp Hgb Conc 32.7 g/dL (32-36); Mean Corpuscular Hgb 28.9 pg (27.0-32.0); Mean Corpuscular Volume 88.5 fL (80-94); Mean Platelet Vol. 9.1 fl (6.2-12.0); Monocyte# 1.91 X10^3/uL; Monocyte% 10.8 % (0-10); NRBC Flagged by Analyzer 0 % (0-5); Neutrophil # 11.97 X10^3/uL (2.7-7.7); Neutrophil % 67.9 % (47-70); POSITIVE DIFFERENTIAL YES; Platelet Count 334 K/mm3 (150-450); RBC Distribution Width CV 12.2 % (11.6-14.6); RBC Distribution Width SD 39.8 fl (35.1-43.9); Red Blood Count 5.46 M/mm3 (4.6-6.2); White Blood Count 17.6 K/mm3 (4.4-11.0)
[2020-07-30] MEDS: 0.9% Normal Saline 1,000 ML 1000 ML IV (10:41)
[2020-07-30] MEDS: dilTIAZem 25 MG/5 ML Vial 20 MG IV BOLUS (10:42)
[2020-07-30] MEDS: Ondansetron 4 MG/2 ML Vial IV (10:44)
[2020-07-30] MEDS: Morphine 4 MG/ML Syringe IV (10:44)
[2020-07-30 10:45] LABS: Differential Indicated SCAN CRITERIA MET
[2020-07-30 10:50] LABS: Anion Gap 8 (5-15); BUN 14 mg/dL (7-18); BUN/Creat Ratio 15.3 RATIO (10-20); Calcium,Total 9.6 mg/dL (8.5-10.1); Chloride 101 mmol/L (98-107); Creatinine, Serum 0.92 mg/dL (0.70-1.30); EST Glomerular Filtration Rate 88 mL/min (>60); Est Glom Filt Rate - Afr Amer 106 mL/min (>60); Estimated Creatinine Clearance 78.98 ml/min; Glucose 138 mg/dL (74-106); Potassium 4.4 mmol/L (3.5-5.1); Sodium Level 135 mmol/L (136-145)
--- NOTE | 2020-07-30 10:56 | CT_ITS ---
STUDY: CTA CHEST REASON FOR EXAM: Male, 65 years old. Sob with left back pain, diaphoretic, and clammy. Pt was dx with lung ca in [place] RADIATION DOSAGE (If Supplied By Facility): CTDIvol = ( 14.51 ) mGy, DLP = ( 448.40 ) mGycm TECHNIQUE: The examination was performed with the intravenous administration of IV 100mL Isovue-370. Post-processing of the angiographic images was performed, with multiplanar reformation and 3D reconstruction. Individualized dose optimization techniques were used for this CT. COMPARISON: Comparison is made with prior study dated 04/11/2020. FINDINGS: Normal enhancement of the main pulmonary artery and right and left pulmonary arteries. Normal enhancement of the bilateral peripheral pulmonary arteries. There is no demonstrated pulmonary embolism. Normal thoracic aorta and visualized great vessels. There is no demonstrated aortic dissection. Normal heart and pericardium. Since prior study, there has been a marked progression of mediastinal and left hilar lymphadenopathy. Progressive infiltrate in the left lower lobe with small left pleural effusion suggestive of postobstructive pneumonitis. The left lower lobe mass has increased in size. Diffuse emphysematous changes and scarring. Bullous formation in the upper lobes. Normal chest wall structures. Normal osseous structures. New 4.1 cm x 6.[address] mass. CT/CTA Chest W/WO Contrast IMPRESSION: Marked increase in size of the mediastinal and left hilar adenopathy as well as increased size of the left lower lobe mass with postobstructive pneumonitis in the left lower lobe and small left pleural effusion. New left adrenal mass. Electronically Signed: Erwin Humphreys, at 12:07 EDT , Service support ,
[2020-07-30 11:07] LABS: Differential Comment SCANNED
--- NOTE | 2020-07-30 12:26 | HP.PCM_ITS ---
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 (7) Adenocarcinoma of lung, stage 4 Status: Chronic Qualifiers: Laterality: left Qualified Code(s): C34.92 - Malignant neoplasm of unspecified part of left bronchus or lung (8) Mass of lower lobe of left lung Status: Chronic (9) Reactive airway disease Status: Chronic (10) Laryngitis, chronic Status: Chronic (11) Contact with and (suspected) exposure to other hazardous, chiefly nonmedicinal, chemicals Status: Chronic History of Present Illness Date of Admission: 07/30/20 Chief Complaint: Racing heartbeat, stent from oncology office The patient is a 65 year old M with multiple comorbidities, most significant left adenocarcinoma diagnosed by bronchoscopy in March 2020 was sent from office where he was for first oncology evaluation after diagnosis. Patient complained of racing heartbeat, pounding sensation was diaphoretic and appeared short of breath therefore sent to ER. He was also diaphoretic and clammy. He denied chest pain or pressure. He states this is his normal breathing as he has to force the air because of vocal cord paralysis in order to talk. In the past he was being evaluated by audio visual technician. In ED, he was being evaluated by radiation oncologist. He advised Decadron 4 mg twice daily, daily radiation treatment of L2 spinal mass and the lung cancer. Patient had EBUS guided transtracheal/transbronchial biopsy by Dr. Camarillo and showed adenocarcinoma. He had extrinsic compression of the left lower lobe, with mediastinal adenopathy. EKG in ER shows atrial flutter with variable rate at 175 bpm. He was given Cardizem 20 mg IV bolus and converted to sinus tachycardia. Repeat EKG shows sinus tachycardia at 105 bpm, LAD, QTC 481 ms. Patient also got Decadron, ceftriaxone, azithromycin, morphine 4 mg and Zofran in ED. Patient also complained of severe constipation, has not had bowel movement for a bout 7 days. He is passing flatus. He complains of chills but denies subjective fever. He has mild intermittent cough in order to bring up phlegm and complain of mucus chest congestion. He also spit out blood tinge sputum, small hemoptysis in the ER. Complain of nausea but no vomiting. Denies new bladder or bowel incontinence. Severe back pain, constant 10/10 intensity with radiation to left thigh more than right thigh. He has numbness of left thigh but denies any weakness of extremity. Complaint of right shoulder pain. 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) Adenocarcinoma of lung, stage 4 (Chronic) Mass of lower lobe of left lung (Chronic) Reactive airway disease (Chronic) Laryngitis, chronic (Chronic) Contact with and (suspected) exposure to other hazardous, chiefly nonmedicinal, chemicals (Chronic) Medical History: Medical History (Last Reviewed 07/30/20 @ 09:10 by Luh Sarah) No pertinent past medical history Z78.9 Allergies prednisone Allergy (Verified 07/30/20 10:12) Unknown Home Medications: Ambulatory Orders Medication Instructions Recorded albuterol sulfate 90 mcg/actuation 1 - 2 puff INHALATION Q6H PRN #8.5 03/28/20 aerosol inhaler g Ascorbic Acid [Vitamin C] 500 mg PO DAILY 05/03/20 Multivitamin 1 ea PO DAILY 05/03/20 [place]-3/Dha/Epa/Fish Oil [Fish Oil 1,600 mg PO DAILY 05/03/20 1,600 mg/5 ml Liquid] oxycodone 30 mg tablet 15 - 30 mg PO BID PRN #30 tab 07/27/20 Dexamethasone [Decadron] 4 mg PO BIDCM #60 tab 07/30/20 Surgical History: Surgical History (Last Reviewed 07/30/20 @ 09:10 by Luh Sarah) History of arthroscopy of right knee Z98.890 1987 History of back surgery Z98.890 2013 History of cataract extraction Z98.49 left eye, 2018 Lives: With Family Smoking Status: Former smoker Alcohol: None Drugs: None Review of Systems Constitutional: Reports: Anorexia, Chills HEENT: Reports: - - Chronic hoarseness, vocal cord paralysis. Denies: Difficulty Swallowing, Dysphasia, Head Aches, Sinus Congestion, Sinus Drainage Cardiovascular: Denies: Chest Pain, Palpitations Respiratory: Reports: Cough, Shortness of Breath, Shortness of breath upon exertion, Sputum production. Denies: Shortness of breath at rest Gastrointestinal: Reports: Constipation. Denies: Abdominal Pain, Nausea, Vomiting Genitourinary: Denies: Dysuria, Frequency, Hesitancy, Incontinence, Retention, Urgency Musculoskeletal: Reports: Back Pain, Joint Pain, Joint stiffness, Joint Tenderness, Shoulder Pain - Right shoulder pain Skin: Denies: Rash, Wounds Neurological: Reports: Balance problems. Denies: Focal weakness, Numbness, Tingling Psychiatric: Reports: Anxiety. Denies: Depression, Homicidal Ideations, Suicidal Ideations Hematologic/ Lymphatic: Denies: Easy Bruising, Easy Bleeding VTE Information - Inpt Only VTE Present on Admission: No VTE Mechan Device Prophylaxis: SCD's VTE Pharm Prophylaxis ordered?: Yes Patient Problems: Active and Suspected Problems (Last Reviewed 07/30/20 @ 09:10 by Luh Sarah) Atrial flutter with rapid ventricular response (Acute) Left adrenal mass (Acute) Left postobstruct pneumonitis (Acute) - Physical Exam Vitals/I&O's: Vital Signs Temp Pulse Resp BP Pulse Ox 96.1 F L 110 H 17 111/75 98 07/30/20 10:04 07/30/20 12:05 07/30/20 12:05 07/30/20 12:05 07/30/20 12:05 Oxygen Flow Rate (L/min) 2 Oxygen Delivery Method Nasal Cannula Weight: 173 lb Body Mass Index (BMI) 25.5 Intake and Output for Last 24 Hours 07/28/20 07/29/20 07/30/20 23:59 23:59 23:59 Intake Total 1000 / 1000 Balance 1000 / 1000 General: Alert, Oriented x3, Cooperative HEENT: Atraumatic, PERRLA, EOMI, Normocephalic Oral: No Gingival or Mucosal Lesions/ Ulcerations, Dry Mucosa Neck: Supple, No JVD, Negative Carotid Bruits Lungs: Diminished - Air entry diminished on left lower lobe as compared to right., Wheezes - Bilateral lower lobes wheezing, more on left side Cardiovascular: Regular rate, Regular Rhythm, Normal S1, Normal S2, No murmurs, Tachycardic Abdomen: Bowel Sounds Present, Soft, Non Tender, Non-Distended, Hypoactive Bowel Sounds, - - Spleen is palpable about 1 cm below left costal margin. Liver not enlarged : Urine output is adequate. No recent decrease of urine output. Denies burning micturition Extremities: No edema, Capillary Refill Less than 3 Seconds, - Skin: No rashes, No breakdown Musculoskeletal: Arthritic Changes, Tenderness - Tenderness present over lumbar spine. Neurological: Cranial nerves II-XII grossly intact, Deep Tendon Reflexes 2+/4 and Symmetrical, Neuro grossly intact, Motor Exam 5/5 strength throughout Psych/Mental Status: Normal Affect, Appropriate Laboratory Results 07/30/20 10:20: WBC 17.6 H, RBC 5.46, Hgb 15.8, Hct 48.3, MCV 88.5, MCH 28.9, MCHC 32.7, RDW Std Deviation 39.8, RDW Coeff of Sudarshan 12.2, Plt Count 334, MPV 9.1, Immature Gran % (Auto) 0.800, Neut % (Auto) 67.9, Lymph % (Auto) 9.8 L, [place] % (Auto) 10.8 H, Eos % (Auto) 10.0 H, Baso % (Auto) 0.7, Absolute Neuts (auto) 12.0 H, Absolute Lymphs (auto) 1.72, Nucleated RBC % 0, Differential Comment SCANNED, Diff Path Review February foll 07/30/20 10:20: Sodium 135 L, Potassium 4.4, Chloride 101, Carbon Dioxide 26.0, Anion Gap 8, BUN 14, Creatinine 0.92, Estim Creat Clear Calc 78.98, Est GFR (MDRD) Af Amer 106, Est GFR (MDRD) Non-Af 88, BUN/Creatinine Ratio 15.3, Glucose 138 H, Calcium 9.6, Troponin I < 0.015 07/30/20 10:20: Uric Acid Pending, Lactate Dehydrogenase Pending 07/30/20 10:20: Total Bilirubin Cancelled, AST Cancelled, ALT Cancelled, A lkaline Phosphatase Cancelled, Albumin Cancelled Current Medications Ceftriaxone Sodium (Rocephin) 1 gm in 50 mls @ 100 mls/hr IV X1 ONE Stop: 07/30/20 12:45 Azithromycin 500 mg/ Dextrose 255 mls @ 250 mls/hr IV X1 ONE Stop: 07/30/20 13:17 Assessment/Plan All Active Problems (Last Reviewed 07/30/20 @ 09:10 by Luh Sarah) Atrial flutter with rapid ventricular response (Acute) Left adrenal mass (Acute) Left postobstruct pneumonitis (Acute) The patient is a 65 year old M with multiple comorbidities is being admitted for multiple problems along with A. fib with RVR and left lower lobe positive for pneumonitis 1. Atrial flutter/fibrillation with RVR: Patient is being admitted in PCU. Pa niraj is converted to sinus rhythm. Started on metoprolol 25 mg p.o. twice daily and titrate the dose as per heart rate and blood pressure. 2D echo is ordered. Patient denies any previous underlying cardiac disease. Had a stress test many years ago. Never had echo. Started on Eliquis 5 mg p.o. twice daily 2. Left lower lobe postobstructive pneumonitis: Discussed with Dr. Cid. Started on IV Zosyn. Pneumonia work-up and blood cultures x2. Bronchodilator, Mucinex, incentive spirometry and chest physiotherapy. Oxygen therapy to keep pulse ox 90%. 3. Left lung adenocarcinoma stage IV with metastasis to L2 lesion/ mass, left adrenal mass with spinal nerve compression: Patient had MRI done on July 25, 2020 which reported as lesion surrounding the posterior aspect of thecal sac with significant compression of thecal sac about 4 mm in AP diameter suggestive of epidural tumor producing severe spinal stenosis with effacement of thecal sac. There is edema of the adjacent paraspinal musculature. Patient seen by radiation oncologist in ER and started on Decadron 4 mg p.o. twice daily with daily radiation to left lung mass and L2 lesion. Patient declined for surgical option for the lumbar mass. Patient denies new urinary or fecal incontinence. Oxycodone controlled release and as needed, morphine. Patient is aggressive bowel regimen as is constipated for 7 days. Pain management consult. As per his home medications, he was taking oxycodone 15 to 30 mg p.o. twice daily PRN. 4. Patient has chronic vocal cord paralysis with hoarseness, reactive airway disease 5. VTE prophylaxis, high risk: Eliquis 5 mg p.o. twice daily. Bilateral SCDs Living will/advanced directive/end of life care: Patient does not have living will or advanced directive. His daughter, Ms. Valerie Costello is power of claim attorney for [facility]. After discussion of procedures involved with full code, DNR CC arrest and DNR CC, the patient and his daughter opted for full code. Will do further palliative care consult to help for planning for further oncology treatment and relief of pain. Patient does want artificial life support including intubation, tube feed, ventilator and/chest compression, central venous catheter, vasopressor and DC shock if needed Total time spent in [id number] encounter in discussion of advanced directive 16 minutes. Inpatient E&M: 23015 Init Hosp L3 Procedures: 85616 Advncd Care Plan 30 Min
--- NOTE | 2020-07-30 12:30 | EKG12_ITS ---
Test Reason : REPEAT Blood Pressure : / mmHG Vent. Rate : 105 BPM Atrial Rate : 105 BPM P-R Int : 158 ms QRS Dur : 084 ms QT Int : 364 ms P-R-T Axes : 060 -68 039 degrees QTc Int : 481 ms Sinus tachycardia Left axis deviation Abnormal ECG Confirmed by HAYES WEAVER, VINH ([id number]), assistant production editor VELIA RADER ([id number]) on 08/06/2020 8:37:02 A M Referred By: CL Confirmed By:TO KOO MD
[2020-07-30] MEDS: Ceftriaxone 1 GM/50 ML BAG IV (12:35)
--- NOTE | 2020-07-30 13:39 | RAO.CONSULT ---
Date of Service: 07/30/20 Referring Provider: Bandar Silverman MD Diagnosis: Marcus Royal is a 65-year-old male diagnosed with clinical stage IV (cT4 N2 M1) adenocarcinoma of the left lung and mediastinum with evidence of likely metastatic disease involving the left adrenal gland and L2 vertebra. History of Present Illness: 04/04/2020: Patient was evaluated in urgent care for laryngitis and wheezing with cough. 04/04/2020: Chest x-ray was completed. This demonstrated a 6.1 x 5.1 cm rounded soft tissue density in the superior segment of the left lower lobe which may represent pneumonia or mass, recommend correlation with CT scan. 04/04/2020: Soft tissue neck x-ray was performed which demonstrated straightening of the normal cervical lordosis with multilevel spondylosis and disc space narrowing. 04/11/2020: CTA of the chest was performed. This demonstrated a highly suspicious 4.6 x 5.1 x 5.9 cm mass in the superior aspect of the left lower lobe with significant narrowing of the left lower lobe pulmonary artery, this is likely a neoplastic process. There is bulky suspicious left perihilar and mediastinal adenopathy. 05/11/2020: Bronchoscopy was performed. There is noted to be extrinsic compression in the left lower lobe with the airway lumen being about 75% occluded, the lesion was not traversed. Level 7 and level 4L lymph node biopsies were obtained and pathology demonstrated non-small cell carcinoma favoring adenocarcinoma consistent with lung primary. 07/19/2020: Patient completed CT lumbar spine with and without contrast due to having low back pain radiating to the left hip. There is a 9 x 5 x 9 mm lytic lesion of L2 occurring at the junction of the lamina and base of the spinous process which is not associated with a pathologic fracture. This is consistent potentially with metastatic disease. There is a mass density in the medial left upper quadrant anterior just above the left kidney compatible with a large adrenal mass. 07/25/2020: Lumbar spine MRI without contrast was performed. This demonstrated a metastatic lesion at the L2 vertebral body involving the posterior vertebral body, pedicles, lamina, and spinous process with epidural tumor producing severe spinal stenosis and effacement of the thecal sac. Radiation Treatment History: No prior history of radiation therapy. No pacemaker. No diagnosis of collagen vascular disease. Interval History: Patient was seen and evaluated in the emergency room. He was initially diagnosed with non-small cell lung cancer in April 2020 and elected at that time that he did not want to undergo any treatment, his only symptom at that time appeared to be hoarseness. Since then he has developed severe low back pain with radiation to the bilateral hip. This is been particularly bad in the last 2 to 3 weeks where the pain has been more constant and near 10/10. Due to pain he was having difficulty with ambulation as well as all other activities and could only get relief when lying on his left side. He has been taking [id number] pain medication and has tried other pain medication prescribed by his primary physician but this has not helped. He notes over the last week that he has had numbness in the left lateral leg. He denies having numbness elsewhere and denies having any focal weakness. He denies any bowel or bladder incontinence. He has had constipation for about 10 days. Over the last few months he has lost about 25 pounds unintentionally and reports his appetite is lower than usual and he is not eating as much. He however does report normal swallowing without pain or dysphasia. He has also had some discomfort in the right shoulder recently. He has had increased shortness of breath particularly with any exertion. He has had hoarseness for several months now. He denies chest pain, other sites of bone pain, headaches, vision changes, ataxia, nausea/vomiting. He denies having fever/chills. He does have intermittent cough which is mostly dry but has had a couple small episodes of hemoptysis. He denies having other problems or concerns at this time. Family History (Last Reviewed 07/30/20 @ 09:10 by Luh Sarah) Father Cancer lung Mother Diabetes Brother Cancer lung Medical History (Last Reviewed 07/30/20 @ 09:10 by Luh Sarah) No pertinent past medical history (Acute) Surgical History (Last Reviewed 07/30/20 @ 09:10 by Luh Sarah) History of arthroscopy of right knee (Acute) 1986 History of back surgery (Acute) 2013 History of cataract extraction (Acute) left eye, 2018 Social History - Tobacco Smoking Status Former smoker Home Medications Medication Instructions Recorded albuterol sulfate 90 mcg/actuation 1 - 2 puff INHALATION Q6H PRN #8.5 03/28/20 aerosol inhaler g Ascorbic Acid [Vitamin C] 500 mg PO DAILY 05/03/20 Multivitamin 1 ea PO DAILY 05/03/20 [place]-3/Dha/Epa/Fish Oil [Fish Oil 1,600 mg PO DAILY 05/03/20 1,600 mg/5 ml Liquid] oxycodone 30 mg tablet 15 - 30 mg PO BID PRN #30 tab 07/27/20 Dexamethasone [Decadron] 4 mg PO BIDCM #60 tab 07/30/20 Allergy/AdvReac Type Severity Reaction Status Date / Time prednisone Allergy Unknown Verified 07/30/20 10:12 Review of Systems: A 12-point review of systems was completed and was negative except for what is noted in the HPI/Interval History and by the nurse. Height/Weight/BMI: Height: 5 ft 9 in Weight: 173 lbs Vital Signs Temperature 97.6 F L 07/30/20 13:41 Temperature Source Oral 07/30/20 13:41 Pulse Rate 107 H 07/30/20 13:41 Respiratory Rate 23 H 07/30/20 13:41 Respiratory Effort 07/30/20 11:28 Blood Pressure 123/79 H 07/30/20 13:41 Blood Pressure Mean 93 07/30/20 13:41 Pulse Ox 97 07/30/20 13:41 Oxygen Delivery Method Nasal Cannula 07/30/20 12:05 Oxygen Flow Rate (L/min) 2 07/30/20 12:05 Physical Exam: ECO-3 KARNOFSKY SCORE: 50-60% CONSTITUTIONAL: Well-developed, well-nourished, and in no apparent distress. HEENT: Mucous membranes moist. No evidence of thrush or lesions within the visualized oropharynx or oral cavity. No trismus. Pupils are equal, round, and reactive to light and accommodation. Extraocular movements are intact. Sclerae are anicteric. NECK: Supple,with no thyromegaly, and non-tender. Trachea midline. No cervical or supraclavicular adenopathy noted. CARDIAC: Regular rate and rhythm. Normal S1, S2. No murmurs, rubs, or gallops. PULMONARY/CHEST: Lungs are clear to auscultation and percussion bilaterally. Rhonchi throughout. Reduced lung sounds on the left. Mild increased work of breathing on oxygen. ABDOMINAL: Abdomen soft, non-tender, non-distended. No hepatomegaly. Normoactive bowel sounds in all four quadrants. No guarding, rebound. BACK: Straight and aligned. No CVA tenderness. Pain with palpation of the low back, otherwise axial skeleton non-tender to percussion. Radiculopathy present to the bilateral hip. EXTREMITIES: Full range of motion in all four extremities, with normal strength equally and symmetrically. No evidence of edema. No clubbing. NEUROLOGICAL EXAM: Alert and oriented x 3. Cranial nerves II through XII are grossly intact. Numbness appreciated in the left lateral thigh. Speech is fluent. Gait and posture are steady. There are no abnormal cerebellar signs. PSYCHIATRIC: Appropriate mood and affect for the clinical situation. Imaging: As per HPI Laboratory Data: Laboratory Tests 07/30/20 10:20 WBC 17.6 H 07/30/2020: CBC otherwise unremarkable. CMP and COVID testing pending Assessment: Marcus Royal is a 65-year-old male diagnosed with clinical stage IV (cT4 N2 M1) adenocarcinoma of the left lung and mediastinum with evidence of likely metastatic disease involving the left adrenal gland and L2 vertebra. I had a detailed succussion with the patient and his daughter regarding the imaging findings including lumbar spine MRI, lumbar spine CT, and CTA chest. He was previously diagnosed with adenocarcinoma of the left lower lobe in April 2020 and opted not to pursue treatment. I reviewed with the patient that there is evidence for severe lung disease with left mainstem bronchus compression and near complete obstruction, large left adrenal gland metastasis and disease involving L2. I explained that this is stage IV lung cancer and typically not amenable to curative therapy. I reviewed the options for palliative radiation therapy. We reviewed treatment of L2 given the severity of disease with nerve compression and epidural disease I also discussed this case and the imaging with [facility] neurosurgery and [facility]. He does have relatively severe pain related to this lesion but does not have significant neurologic symptoms with just minimal numbness. Given the extent of the lung disease in particular it was felt that he may not be a good surgical candidate and that Decadron and radiation therapy would be reasonable. I also reviewed with the patient the option of transfer to a facility with neurosurgery. I explained that typically when surgery is done followed by radiation therapy there may be higher rates of disease control and also quicker resolution of current symptoms but that this has to be balanced with the overall extent of other disease. Given that he has had a few episodes of hemoptysis and has a very large advanced left lung tumor with mediastinal involvement causing near obstruction of the left mainstem bronchus as well as constriction of the local vasculature I do believe that pursuing palliative radiation therapy to this area is also warranted to help prevent lung collapse and provide some disease control. I explained that if he pursued surgery to the lumbar spine this would likely preclude systemic therapy for several weeks in order for healing to take place. He also does appear to have postobstructive pneumonitis with elevated white count may have secondary infection. COVID test is pending. Following our discussion the patient and his family decided that they would like to pursue palliative radiation therapy to the L2 vertebral level with concurrent Decadron and also treat the lung concurrently. I reviewed the logistics of radiation therapy in detail including CT simulation, treatment planning, and daily fractionated treatment delivery. I expressed the need to start steroids to reduce inflammation within the spine disease and help relieve his symptoms, he has had some history of rash from steroids but took prednisone in March without any issue so likely does not have any kind of an allergy. The risk, benefits, alternatives to palliative radiation therapy were reviewed in detail and all questions were addressed. The goals of therapy were discussed in order to provide local disease control in the treated area and relieve symptoms. The potential acute and chronic toxicities were reviewed in detail and include skin irritation, pain flare, fatigue, loose stool/diarrhea, cough/pneumonitis, esophagitis, pericarditis, bone weakening/fracture risk, nerve damage, reduction in blood counts. Following our discussion informed consent was obtained and we will plan to proceed with CT simulation once he is confirmed to be COVID negative. Recommend Decadron 4 mg 3 times daily and to start omeprazole concurrently. We will tentatively try and initiate treatment by tomorrow. Patient was instructed to call with any questions or concerns. Plan: 1) plan for palliative radiation therapy to L2 and lung, CT simulation once COVID negative is confirmed 2) plan to start Decadron 4 mg 3 times daily with concurrent omeprazole and will taper as tolerated 3) will be evaluated for systemic therapy following palliative radiation therapy. 4) we will consider further staging work-up including brain MRI while in the hospital 5) recommend Palliative care referral Thank you for allowing me to participate in the management and care of your patient. If I may answer any questions in the interim, please do not hesitate to contact me at any time. Bryan Pritchard DO, MS [employer] Operator, Department of Radiation Oncology [facility] Inpatient E&M: 32116 Init Hosp L3
[2020-07-30] MEDS: Metoprolol Tartrate 25 MG Tablet PO ×2 (14:01→21:45)
[2020-07-30] MEDS: dexAMETHasone 4 MG/ML Vial IV ×2 (14:01→21:45)
[2020-07-30 14:07] LABS: AST(SGOT) 23 U/L (15-37); Alanine Aminotransfer ALT/SGPT 19 U/L (16-61); Albumin, Serum 2.6 g/dL (3.2-5.0); Alkaline Phosphatase 93 U/L (45-117)
--- NOTE | 2020-07-30 14:11 | ECHOD_ITS ---
Reason For Study: New Afib/Flutter Procedure This was a 2D Doppler, Color Flow transthoracic echocardiogram. Myocardial strain analysis was performed in this exam to aid in the assessment of cardiac function. Exam performed portable in patient room. Left Ventricle Normal LV size. The estimated ejection fraction is 60 %. No evidence for diastolic dysfunction. No regional wall motion abnormalities noted. Right Ventricle Normal RV size. Normal systolic function. Atria Normal left atrium. Normal right atrium. No doppler evidence for ASD. Mitral Valve There is no mitral valve stenosis. There is no mitral regurgitation noted. Tricuspid Valve There is no tricuspid stenosis. Trivial tricuspid valve insufficiency. Pulmonary artery systolic pressure is 50-55 mmHg. Aortic Valve Trisinus/trileaflet aortic valve. There is no aortic stenosis. No aortic valve insufficiency. Pulmonic Valve There is no pulmonic valvular stenosis. Trivial pulmonic valve insufficiency identified. Great Vessels Normal aortic root. Pericardium/Pleural No pericardial effusion. MMode/2D Measurements & Calculations LVIDd: 4.8 cm IVSd: 1.1 cm Ao root diam: 3.6 cm LVIDs: 3.3 cm LVPWd: 1.0 cm LA dimension: 3.1 cm FS: 31.9 % LAV(MOD-bp): 48.5 ml LVAd ap4: 25.7 cm2 SV(MOD-sp4): 47.7 ml LAV(MOD-bp) Indexed: 24.9 ml/m2 EDV(MOD-sp4): 70.5 ml LAV(MOD-sp2): 58.1 ml EDV(sp4-el): 72.3 ml LAV(MOD-sp4): 37.6 ml LVAs ap4: 12.9 cm2 ESV(MOD-sp4): 22.8 ml ESV(sp4-el): 22.8 ml EF(MOD-sp4): 67.7 % EF(sp4-el): 68.4 % SV(sp4-el): 49.5 ml LA A4 area: 15.5 cm2 RA A4 area: 16.5 cm2 Time Measurements MV dec time: 0.14 sec Doppler Measurements & Calculations MV E max agusto: 92.2 cm/sec Lat Peak E' Agusto: 13.0 cm/sec Med Peak E' Agusto: 12.8 cm/sec MV A max agusto: 119.7 cm/sec E/E' lat: 7.1 E/E' med: 7.2 MV E/A: 0.77 MV V2 max: 109.5 cm/sec MV P1/2t max agusto: 104.2 cm/sec Ao V2 max: 149.5 cm/sec MV max P.8 mmHg MV P1/2t: 56.1 msec Ao max P.9 mmHg MV V2 mean: 73.1 cm/sec MV mean P.5 mmHg MV dec slope: 543.5 cm/sec2 MV V2 VTI: 20.5 cm MVA(P1/2t): 3.9 cm2 LV V1 max: 125.6 cm/sec PA V2 max: 108.8 cm/sec TR max agusto: 342.3 cm/sec LV V1 max P.3 mmHg TR max P.9 mmHg Interpretation Summary The estimated ejection fraction is 60 %. No evidence for diastolic dysfunction. Ordering Physician: Rommel Neil Referring Physician: Wang Camarillo M.D. Performed By: Jerrod Busch RCS
[2020-07-30 14:15] LABS: LDH 356 U/L (87-241); Uric Acid 5.6 mg/dL (3.5-7.2)
[2020-07-30 14:34] LABS: Magnesium 2.1 mg/dL (1.6-2.6)
[2020-07-30] MEDS: fentaNYL 100 MCG/2 ML Ampul 50 MCG IV (15:21)
--- NOTE | 2020-07-30 16:00 | PCA ---
Paperwork faxed to [facility] for palliative care consult,
--- NOTE | 2020-07-30 16:38 | CON.PCM_ITS ---
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 (5) Severe spinal stenosis Status: Chronic (6) NSCLC metastatic to bone Status: Acute (7) Tachyarrhythmia Status: Acute (8) Adenocarcinoma of lung, stage 4 Status: Chronic Qualifiers: Laterality: left Qualified Code(s): C34.92 - Malignant neoplasm of unspecified part of left bronchus or lung (9) Mass of lower lobe of left lung Status: Chronic (10) Reactive airway disease Status: Chronic (11) Laryngitis, chronic Status: Chronic Reason for Consult Date of Consultation: 07/30/20 Reason for Consultation: Postobstructive pneumonia History of Present Illness: The patient is a 65 year old M, with past medical history listed below, who [place] [facility] [place] secondary to progressive shortness of breath and palpitations. Patient reportedly was sent in by his oncologist after he presented for an outpatient visit. Patient had an irregular rapid heart rate at that time and had been complaining of worsening shortness of breath, especially on exertion. Patient does have chronic back pain and was recently found to have L2 metastasis without protrusion. Patient was diagnosed in April with adenocarcinoma, but had looked at alternative medicine options before symptoms progressed. Patient describes the pain as intermittent, sharp and nonradiating. Patient has not had any new focal deficits. Patient denies any history of DVT or PE. Patient is not on anticoagulation at baseline. In the ER, patient was noted to be tachypneic and tachycardic. EKG initially showed A. fib with variable block and a rate of 175, but was given 20 mg of Cardizem with a repeat EKG showing sinus tachycardia with no ST changes. Patient was also noted to be desaturating to 75% with ambulation. CTA of the chest was obtained showing postobstructive pneumonia with enlargement of previous mass. No PE was noted. Patient did have significant leukocytosis on laboratory work-up. Patient was placed on 2 L nasal cannula, given fluid bolus, Zofran, Rocephin and azithromycin. Following the ER, patient had gone for radiation therapy. Patient is unclear on the exact onset of his current symptomatology. Patient states he had used alternative measures previously, but felt that the back pain was more than he can control with a chiropractor. Patient denies any smoking or emesis. Patient has had some nausea. Patient does have chills, but denies any subjective fever. Patient does occasionally have small hemoptysis. Patient has had some right shoulder pain, but does not feel that this is significant given my back pain. Review of systems otherwise negative from a constitutional, HEENT, respiratory, cardiovascular, GI, genitourinary, musculoskeletal, skin, neurologic, psychiatric and hematologic system unless stated above. 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) Adenocarcinoma of lung, stage 4 (Chronic) Mass of lower lobe of left lung (Chronic) Reactive airway disease (Chronic) Laryngitis, chronic (Chronic) Contact with and (suspected) exposure to other hazardous, chiefly nonmedicinal, chemicals (Chronic) Medical History: Medical History (Last Reviewed 07/30/20 @ 09:10 by Luh Sarah) No pertinent past medical history Z78.9 Allergies prednisone Allergy (Verified 07/30/20 10:12) Unknown Home Medications: Ambulatory Orders Medication Instructions Recorded albuterol sulfate 90 mcg/actuation 1 - 2 puff INHALATION Q6H PRN #8.5 03/28/20 aerosol inhaler g Ascorbic Acid [Vitamin C] 500 mg PO DAILY 05/03/20 Multivitamin 1 ea PO DAILY 05/03/20 [place]-3/Dha/Epa/Fish Oil [Fish Oil 1,600 mg PO DAILY 05/03/20 1,600 mg/5 ml Liquid] oxycodone 30 mg tablet 15 - 30 mg PO BID PRN #30 tab 07/27/20 Dexamethasone [Decadron] 4 mg PO BIDCM #60 tab 07/30/20 Surgical History: Surgical History (Last Reviewed 07/30/20 @ 09:10 by Luh Sarah) History of arthroscopy of right knee Z98.890 1987 History of back surgery Z98.890 2013 History of cataract extraction Z98.49 left eye, 2018 Lives: With Family Smoking Status: Former smoker Alcohol: None Drugs: None Review of Systems Comment: See HPI Patient Problems: Active and Suspected Problems (Last Reviewed 07/30/20 @ 09:10 by Luh kinney) Atrial flutter with rapid ventricular response (Acute) Left adrenal mass (Acute) Left postobstruct pneumonitis (Acute) NSCLC metastatic to bone (Acute) Tachyarrhythmia (Acute) Objective: All imaging was personally reviewed. Agree with formal interpretation. Biopsy completed previously was consistent with adenocarcinoma. Laboratory work-up did show a significant eosinophilia. - Physical Exam Vitals/I&O's: Vital Signs Temp Pulse Resp BP Pulse Ox 36.4 C L 97 18 99/77 98 07/30/20 13:41 07/30/20 15:40 07/30/20 15:40 07/30/20 15:40 07/30/20 15:40 Oxygen Flow Rate (L/min) 2 Oxygen Delivery Method Nasal Cannula Weight: 78.471 kg Body Mass Index (BMI) 25.5 Intake and Output for Last 24 Hours 07/28/20 07/29/20 07/30/20 23:59 23:59 23:59 Intake Total 1000 / 1000 Balance 1000 / 1000 General: Alert, Oriented x3, Cooperative, No apparent distress, - - Hoarse voice. Mild conversational dyspnea. HEENT: Atraumatic, PERRLA, EOMI, Normocephalic, - - No scleral icterus or injection noted. No facial droop appreciated. Oral: Moist Mucosa, No Gingival or Mucosal Lesions/ Ulcerations Neck: Supple, No JVD, No Nodes, Trachea Midline Lungs: No rales, Diminished, Rhonchi - Right base, Wheezes - Bilateral, - - Symmetric expansion. Cardiovascular: Regular Rhythm, Normal S1, Normal S2, No murmurs, No rub noted, No Gallop, Tachycardic Abdomen: Soft, Non Tender, Non-Distended, Splenomegaly Extremities: No clubbing, No cyanosis, No edema, Capillary Refill Less than 3 Seconds Skin: No rashes, No breakdown Musculoskeletal: No Tenderness to Palpation of Joints or Extremities, Tenderness - Palpation over the L2 area Lymphatic: No Cervical, Supraclavicular, or Inguinal Adenopathy Neurological: Cranial nerves II-XII grossly intact, Neuro grossly intact, Motor Exam 5/5 strength throughout Psych/Mental Status: Alert and oriented to time, place, person, mood and affect Laboratory Results 07/30/20 10:20: WBC 17.6 H, RBC 5.46, Hgb 15.8, Hct 48.3, MCV 88.5, MCH 28.9, MCHC 32.7, RDW Std Deviation 39.8, RDW Coeff of Sudarshan 12.2, Plt Count 334, MPV 9.1, Immature Gran % (Auto) 0.800, Neut % (Auto) 67.9, Lymph % (Auto) 9.8 L, [place] % (Auto) 10.8 H, Eos % (Auto) 10.0 H, Baso % (Auto) 0.7, Absolute Neuts (auto) 12.0 H, Absolute Lymphs (auto) 1.72, Nucleated RBC % 0, Differential Comment SCANNED, Diff Path Review February07/30/20 10:20: Sodium 135 L, Potassium 4.4, Chloride 101, Carbon Dioxide 26.0, Anion Gap 8, BUN 14, Creatinine 0.92, Estim Creat Clear Calc 78.98, Est GFR (MDRD) Af Amer 106, Est GFR (MDRD) Non-Af 88, BUN/Creatinine Ratio 15.3, Glucose 138 H, Calcium 9.6, Troponin I < 0.015 07/30/20 10:20: Uric Acid 5.6, Lactate Dehydrogenase 356 H 07/30/20 10:20: Sodium Cancelled, Potassium Cancelled, Chloride Cancelled, Carbon Dioxide Cancelled, Anion Gap Cancelled, BUN Cancelled, Creatinine Cancelled, Est GFR (MDRD) Af Amer Cancelled, Est GFR (MDRD) Non-Af Cancelled, BUN/Creatinine Ratio Cancelled, Glucose Cancelled, Calcium Cancelled, Total Bilirubin 0.60, AST 23, ALT 19, Alkaline Phosphatase 93, Total Protein Cancelled, Albumin 2.6 L, Globulin Cancelled, Albumin/Globulin Ratio Cancelled 07/30/20 10:20: Magnesium 2.1 07/30/20 12:27: COVID-19 (ELLY) Not Detected 07/30/20 15:05: Lactic Acid Pending 07/30/20 15:05: Troponin I < 0.015 Current Medications Acetaminophen (Tylenol) 650 mg PO Q6H PRN PRN PRN Reason: Pain Score 1-10/Temp > 100.7 F Al Hydroxide/Mg Hydroxide (Mylanta Ii) 30 ml PO Q6H PRN PRN PRN Reason: Gastric Burning Albuterol Sulfate (Ventolin Aerosols) 2.5 mg INHALATION Q2H PRN PRN PRN Reason: SOB/Wheezing Albuterol/Ipratropium (Duoneb) 3 ml INHALATION Q4H.RT SHARRON Apixaban (Eliquis) 5 mg PO Q12 [facility] Bisacodyl (Dulcolax) 10 mg RECTAL DAILY [facility] Stop: 08/02/20 10:01 Guaifenesin (Mucinex) 1,200 mg PO BID [facility] Sodium Chloride () 1,000 mls @ 100 mls/hr IV .Q10H SHARRON Piperacillin Sod/Tazobactam (Sod 3.375 gm/ Sodium Chloride) 50 mls @ 12.5 mls/hr IV Q8 [facility] Stop: 08/06/20 14:12 Melatonin (Melatonin) 3 mg PO QHS PRN PRN PRN Reason: INSOMNIA Metoprolol Tartrate (Lopressor (Beta Will)) 25 mg PO BID [facility] Morphine Sulfate () 2 mg IV Q3H PRN PRN PRN Reason: Pain Score 6-10 Nitroglycerin (Nitrostat) 0.4 mg SUBLINGUAL Q5M PRN PRN Reason: CARDIAC/CHEST PAIN Ondansetron HCl (Zofran) 4 mg IV Q8H PRN PRN PRN Reason: NAUSEA/VOMITING Oxycodone HCl (Oxyir) 10 mg PO Q4H PRN PRN PRN Reason: Pain Score 4-10 Oxycodone HCl (Oxycontin) 20 mg PO BID [facility] Polyethylene Glycol (Miralax) 17 gm PO DAILY [facility] Prochlorperazine Edisylate (Compazine Iv) 5 mg IV Q4H PRN PRN PRN Reason: Breakthrough Nausea/Vomiting Psyllium Hydrophilic Mucilloid (Metamucil) 1 packet PO BID [facility] Senna/Docusate Sodium (Senokot-S, Angelica-Colace) 2 tablet PO BID [facility] Clinical Impression(s) from Imaging Studies Chest CTA 07/30/20 10:56 IMPRESSION: Marked increase in size of the mediastinal and left hilar adenopathy as well as increased size of the left lower lobe mass with postobstructive pneumonitis in the left lower lobe and small left pleural effusion. New left adrenal mass. Electronically Signed: Erwin Humphreys, at 12:07 EDT , Service support , Assessment/Plan All Active Problems (Last Reviewed 07/30/20 @ 09:10 by Luh Sarah) Atrial flutter with rapid ventricular response (Acute) Left adrenal mass (Acute) Left postobstruct pneumonitis (Acute) 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 Continue telemetry to monitor cardiac status 2. Agree with antibiotics, cultures, bronchodilators and Mucinex 3. Wean oxygen as tolerated, pulmonary toileting with Acapella 4. Confirmed full CODE STATUS 5. Agree with echocardiogram IMPRESSIONS: 1. Severe sepsis secondary to postobstructive pneumonia secondary to advancing stage IV left lung adenocarcinoma Patient with both enlargement of the left hilar mass, mediastinal lymphadenopathy, left adrenal mass and L2 lesion. Patient with significant leukocytosis and eosinophilia. This may be secondary to the tumor. Agree with antibiotics empirically, Mucinex and Acapella. Patient was initiated on anticoagulation, but does not appear that he is going to need a central line or other for hypotension. Decadron may help with skeletal pain and potential improved pulmonary clearance. Patient will need an aggressive bowel regimen given his current opioid requirements. Oncology and radiation oncology are a white of the patient situation. 2. 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 Unclear how much dyspnea is present as patient does have some conversational issues associated with vocal cord paralysis. We will continue to monitor for stridor or other complications. Patient appears to be doing okay at this time. Did stress the patient importance of incentive spirometer for lung recruitment. 3. A. fib versus a flutter with RVR Patient appears to have responded appropriately to current therapy. We will continue to monitor with telemetry. Agree with echocardiogram. Patient would be at risk for potential invasion given the amount of mediastinal lymphadenopathy noted on CT scan. An MRI would be necessary to evaluate for cardiac invasion. Inpatient E&M: [id number] Init Hosp L2
[2020-07-30 16:51] LABS: Lactic Acid 2.3 mmol/L (0.4-1.9)
[2020-07-30] MEDS: 0.9% Normal Saline 1,000 ML 100 ML IV (17:42)
[2020-07-30] MEDS: APIXABAN 5 MG TABLET PO (17:50)
[2020-07-30] MEDS: guaiFENesin 1,200 MG Tablet 1200 MG PO (17:51)
[2020-07-30 19:18] LABS: Reflex Lactate? Y
[2020-07-30 19:47] LABS: Lactic Acid 2.2 mmol/L (0.4-1.9)
[2020-07-30] MEDS: Senna/Docusate Sodium 1 Tablet 2 TABLET PO (19:56)
[2020-07-30] MEDS: Psyllium 1 PACKET PO (19:59)
[2020-07-30] MEDS: Ipratropium/Albuterol Sulfate 3 ML AMPUL.NEB INHALATION ×2 (20:12→23:08)
[2020-07-30 20:17] LABS: Bacteria 0 SEEN /hpf (None Seen); Mucous, Urine 0 SEEN /hpf (<or=2+); Red Blood Cells-Urine 0 SEEN /hpf (0-5); Squamous Epithelial Cells - UA 0 SEEN /hpf (0-5); White Blood Cells 0 SEEN /hpf (0-5)
[2020-07-30 20:29] LABS: Color, Urine Yellow (Yellow); Glucose, Dipstick Normal (Normal); Ketone-Dipstick 5 mg/dl (Negative); Leukocyte Esterase-Dipstick Negative /ul (Negative); Nitrite-Dipstick Negative (Negative); Occult Blood-Urine Negative /ul (Negative); Protein-Dipstick 15 mg/dl (Negative); Urine Bilirubin Dipstick Negative (Negative); Urine Clarity Clear (Clear); Urine Urobilinogen 4 mg/dl (Normal)
[2020-07-30 20:41] LABS: M R Staph aureus DNA By PCR Negative (Negative); Probe Check PASS; Specimen Processing Control PASS
[2020-07-31] VITALS (19 sets, daily range): BP systolic 104–127; BP diastolic 53–70; PULSE 91–116; RESP 18–20; TEMP 36.4–37.1; O2SAT 94–98
[2020-07-31] MEDS: 0.9% Normal Saline 1,000 ML 100 ML IV ×2 (04:42→17:01)
[2020-07-31 05:42] LABS: Absolute Lymphocyte Count 0.72 X10^3/uL (0.83-4.51); Absolute Neutrophil Count 12.9 X10^3/uL (2.0-7.7); Basophil# 0.05 X10^3/uL; Basophil% 0.3 % (0-1); Eosinophil# 0.01 X10^3/uL; Eosinophils% 0.1 % (0-5); Hematocrit 40.2 % (40-54); Lymphocyte # 0.72 X10^3/ul (4.0); Mean Corp Hgb Conc 32.3 g/dL (32-36); Mean Corpuscular Hgb 29.1 pg (27.0-32.0); Mean Corpuscular Volume 89.9 fL (80-94); Mean Platelet Vol. 9.4 fl (6.2-12.0); Monocyte# 0.61 X10^3/uL; Monocyte% 4.2 % (0-10); NRBC Flagged by Analyzer 0 % (0-5); Neutrophil % 89.4 % (47-70); Platelet Count 294 K/mm3 (150-450); RBC Distribution Width CV 12.2 % (11.6-14.6); Red Blood Count 4.47 M/mm3 (4.6-6.2); White Blood Count 14.4 K/mm3 (4.4-11.0)
[2020-07-31 06:09] LABS: Anion Gap 7 (5-15); BUN 12 mg/dL (7-18); BUN/Creat Ratio 17.1 RATIO (10-20); Calcium,Total 8.8 mg/dL (8.5-10.1); Chloride 103 mmol/L (98-107); Cholesterol 137 mg/dL (200); EST Glomerular Filtration Rate 119 mL/min (>60); Est Glom Filt Rate - Afr Amer 144 mL/min (>60); Estimated Creatinine Clearance 72.66 ml/min; Glucose 151 mg/dL (74-106); High Density Lipoprotein 31 mg/dL; Phosphorus 3.5 mg/dL (2.5-4.9); Potassium 4.2 mmol/L (3.5-5.1); Sodium Level 136 mmol/L (136-145); Thyroid Stim Hormone (TSH) 0.44 uIU/mL (0.358-3.74); Triglycerides 125 mg/dL; Very Low Density Lipoprotein 25 mg/dL (5-40)
[2020-07-31] MEDS: Ipratropium/Albuterol Sulfate 3 ML AMPUL.NEB INHALATION ×5 (07:04→22:35)
[2020-07-31] MEDS: Gabapentin 300 MG Capsule PO ×2 (09:04→17:38)
[2020-07-31] MEDS: dexAMETHasone 4 MG/ML Vial IV ×3 (09:04→21:49)
[2020-07-31] MEDS: Bisacodyl 10 MG Suppository RECTAL (09:05)
[2020-07-31] MEDS: Senna/Docusate Sodium 1 Tablet 2 TABLET PO ×2 (09:05→21:44)
--- NOTE | 2020-07-31 09:06 | PN_ITS ---
Patient Problems: Active and Suspected Problems (Last Reviewed 07/30/20 @ 09:10 by Luh Sarah) Atrial flutter with rapid ventricular response (Acute) Left adrenal mass (Acute) Left postobstruct pneumonitis (Acute) Subjective: Patient appears to be doing well at this time. Patient does report his activity is limited secondary to sacral pain, but is tolerating room air at this time. Patient has had more of a wet cough, but subjectively feels that his dyspnea is improving. - Physical Exam Vitals/I&O's: Vital Signs Temp Pulse Resp BP Pulse Ox 36.4 C L 105 H 18 109/57 L 94 07/31/20 09:00 07/31/20 09:00 07/31/20 09:00 07/31/20 09:00 07/31/20 09:00 Oxygen Flow Rate (L/min) 2 Oxygen Delivery Method Room Air Weight: 80.5 kg Body Mass Index (BMI) 26.0 Intake and Output for Last 24 Hours 07/29/20 07/30/20 07/31/20 23:59 23:59 23:59 Intake Total 2125 / 2125 970 / 970 Output Total 200 / 200 300 / 300 Balance 1925 / 1925 670 / 670 General: Alert, Oriented x3, Cooperative, No apparent distress, - - Appears stated age. Speaking in full sentences. HEENT: Atraumatic, PERRLA, EOMI, Normocephalic, - - No scleral icterus or injection noted Oral: Moist Mucosa, No Gingival or Mucosal Lesions/ Ulcerations Neck: Supple, No JVD, No Nodes, Trachea Midline Lungs: Diminished, Rhonchi - Left base Cardiovascular: Normal S1, Normal S2, No murmurs, No rub noted, No Gallop, Tachycardic Abdomen: Bowel Sounds Present, Soft, Non Tender, Non-Distended Extremities: No clubbing, No cyanosis, No edema, Capillary Refill Less than 3 Seconds Skin: No rashes, No breakdown Musculoskeletal: No Tenderness to Palpation of Joints or Extremities Lymphatic: No Cervical, Supraclavicular, or Inguinal Adenopathy Neurological: Cranial nerves II-XII grossly intact, Neuro grossly intact, Motor Exam 5/5 strength throughout Psych/Mental Status: Alert and oriented to time, place, person, mood and affect Microbiology Past 72 Hours 07/30/20 12:27 Mucosa - Nasopharyngeal Respiratory Panel (PCR) - Final 07/30/20 19:28 Urine, Clean Catch Streptococcus pneumoniae Antigen (M - Final 07/30/20 19:28 Urine, Clean Catch Legionella Antigen - Final Laboratory Results 07/30/20 10:20: WBC 17.6 H, RBC 5.46, Hgb 15.8, Hct 48.3, MCV 88.5, MCH 28.9, MCHC 32.7, RDW Std Deviation 39.8, RDW Coeff of Sudarshan 12.2, Plt Count 334, MPV 9.1, Immature Gran % (Auto) 0.800, Neut % (Auto) 67.9, Lymph % (Auto) 9.8 L, [place] % (Auto) 10.8 H, Eos % (Auto) 10.0 H, Baso % (Auto) 0.7, Absolute Neuts (auto) 12.0 H, Absolute Lymphs (auto) 1.72, Nucleated RBC % 0, Differential Comment SCANNED, Diff Path Review February07/30/20 10:20: Sodium 135 L, Potassium 4.4, Chloride 101, Carbon Dioxide 26.0, Anion Gap 8, BUN 14, Creatinine 0.92, Estim Creat Clear Calc 78.98, Est GFR (MDRD) Af Amer 106, Est GFR (MDRD) Non-Af 88, BUN/Creatinine Ratio 15.3, Glucose 138 H, Calcium 9.6, Troponin I < 0.015 07/30/20 10:20: Uric Acid 5.6, Lactate Dehydrogenase 356 H 07/30/20 10:20: Sodium Cancelled, Potassium Cancelled, Chloride Cancelled, Carbon Dioxide Cancelled, Anion Gap Cancelled, BUN Cancelled, Creatinine Cancelled, Est GFR (MDRD) Af Amer Cancelled, Est GFR (MDRD) Non-Af Cancelled, BUN/Creatinine Ratio Cancelled, Glucose Cancelled, Calcium Cancelled, Total Bilirubin 0.60, AST 23, ALT 19, Alkaline Phosphatase 93, Total Protein Cancelled, Albumin 2.6 L, Globulin Cancelled, Albumin/Globulin Ratio Cancelled 07/30/20 10:20: Magnesium 2.1 07/30/20 12:27: COVID-19 (ELLY) Not Detected 07/30/20 15:05: Lactic Acid 2.3 H* 07/30/20 15:05: Troponin I < 0.015 07/30/20 18:03: Troponin I < 0.015 07/30/20 18:46: Lactic Acid 2.2 H* 07/30/20 19:28: Urine Color Yellow, Urine Clarity Clear, Urine pH 7.0, Ur Specific [place] 1.010, Urine Protein 15 H, Urine Glucose (UA) Normal, Urine Ketones 5 H, Urine Occult Blood Negative, Urine Nitrite Negative, Urine Bilirubin Negative, Urine Urobilinogen 4 H, Ur Leukocyte Esterase Negative, Urine RBC 0 SEEN, Urine WBC 0 SEEN, Ur Squamous Epith Cells 0 SEEN, Urine Bacteria 0 SEEN, Urine Mucus 0 SEEN 07/30/20 : MRSA (PCR) Negative 07/31/20 05:20: Sodium 136, Potassium 4.2, Chloride 103, Carbon Dioxide 26.0, Anion Gap 7, BUN 12, Creatinine 0.70, Estim Creat Clear Calc 72.66, Est GFR (MDRD) Af Amer 144, Est GFR (MDRD) Non-Af 119, BUN/Creatinine Ratio 17.1, Glucose 151 H, Calcium 8.8, Phosphorus 3.5, Triglycerides 125, Cholesterol 137, LDL Cholesterol 81, VLDL Cholesterol 25, HDL Cholesterol 31 L, TSH 0.44 07/31/20 05:20: WBC 14.4 H, RBC 4.47 L, Hgb 13.0, Hct 40.2, MCV 89.9, MCH 29.1, MCHC 32.3, RDW Std Deviation 40.0, RDW Coeff of Sudarshan 12.2, Plt Count 294, MPV 9.4, Immature Gran % (Auto) 1.000 H, Neut % (Auto) 89.4 H, Lymph % (Auto) 5.0 L, [place] % (Auto) 4.2, Eos % (Auto) 0.1, Baso % (Auto) 0.3, Absolute Neuts (auto) 12.9 H, Absolute Lymphs (auto) 0.72 L, Nucleated RBC % 0 Current Medications Acetaminophen (Tylenol) 650 mg PO Q6H PRN PRN PRN Reason: Pain Score 1-10/Temp > 100.7 F Al Hydroxide/Mg Hydroxide (Mylanta Ii) 30 ml PO Q6H PRN PRN PRN Reason: Gastric Burning Albuterol Sulfate (Ventolin Aerosols) 2.5 mg INHALATION Q2H PRN PRN PRN Reason: SOB/Wheezing Albuterol/Ipratropium (Duoneb) 3 ml INHALATION Q4H.RT [facility] Last Admin: 07/31/20 07:04 Dose: 3 ml Documented by: Apixaban (Eliquis) 5 mg PO Q12 [facility] Last Admin: 07/30/20 19:55 Dose: Not Given Documented by: Bisacodyl (Dulcolax) 10 mg RECTAL DAILY [facility] Stop: 08/02/20 10:01 Last Admin: 07/31/20 09:05 Dose: 10 mg Documented by: Dexamethasone Sodium Phosphate (Decadron) 4 mg IV Q12 [facility] Last Admin: 07/31/20 09:04 Dose: 4 mg Documented by: Gabapentin (Neurontin) 300 mg PO BIDCM [facility] Last Admin: 07/31/20 09:04 Dose: 300 mg Documented by: Guaifenesin (Mucinex) 1,200 mg PO BID [facility] Last Admin: 07/30/20 20:05 Dose: Not Given Documented by: Sodium Chloride () 1,000 mls @ 100 mls/hr IV .Q10H [facility] Last Admin: 07/31/20 04:42 Dose: 100 mls/hr Documented by: Piperacillin Sod/Tazobactam (Sod 3.375 gm/ Sodium Chloride) 50 mls @ 12.5 mls/hr IV Q8 [facility] Stop: 08/04/20 22:01 Last Admin: 07/31/20 05:08 Dose: 12.5 mls/hr Documented by: Sodium Chloride () 250 mls @ 15 mls/hr IV .[id number] PRN PRN Reason: Saline Flush Sodium Chloride () 250 mls @ 15 mls/hr IV .[id number] PRN PRN Reason: Additional IVPB Infusion Melatonin (Melatonin) 3 mg PO QHS PRN PRN PRN Reason: INSOMNIA Metoprolol Tartrate (Lopressor (Beta Will)) 25 mg PO BID [facility] Last Admin: 07/30/20 21:45 Dose: 25 mg Documented by: Morphine Sulfate () 2 mg IV Q3H PRN PRN PRN Reason: Pain Score 6-10 Nitroglycerin (Nitrostat) 0.4 mg SUBLINGUAL Q5M PRN PRN Reason: CARDIAC/CHEST PAIN Ondansetron HCl (Zofran) 4 mg IV Q8H PRN PRN PRN Reason: NAUSEA/VOMITING Oxycodone HCl (Oxyir) 10 mg PO Q4H PRN PRN PRN Reason: Pain Score 4-10 Oxycodone HCl (Oxycontin) 20 mg PO BID [facility] Last Admin: 07/30/20 21:43 Dose: Not Given Documented by: Polyethylene Glycol (Miralax) 17 gm PO DAILY [facility] Prochlorperazine Edisylate (Compazine Iv) 5 mg IV Q4H PRN PRN PRN Reason: Breakthrough Nausea/Vomiting Psyllium Hydrophilic Mucilloid (Metamucil) 1 packet PO BID [facility] Last Admin: 07/30/20 19:59 Dose: 1 packet Documented by: Senna/Docusate Sodium (Senokot-S, Angelica-Colace) 2 tablet PO BID [facility] Last Admin: 07/31/20 09:05 Dose: 2 tablet Documented by: Clinical Impression(s) from Imaging Studies Chest CTA 07/30/20 10:56 IMPRESSION: Marked increase in size of the mediastinal and left hilar adenopathy as well as increased size of the left lower lobe mass with postobstructive pneumonitis in the left lower lobe and small left pleural effusion. New left adrenal mass. Electronically Signed: Erwin Humphreys, at 12:07 EDT , Service support , Medical Necessity - Tobacco Use Smoking Status: Former smoker Assessment/Plan All Active Problems (Last Reviewed 07/30/20 @ 09:10 by Luh Sarah) Atrial flutter with rapid ventricular response (Acute) Left adrenal mass (Acute) Left postobstruct pneumonitis (Acute) 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 Continue telemetry to monitor cardiac status 2. Agree with antibiotics, Decadron, bronchodilators and Mucinex 3. Wean oxygen as tolerated, pulmonary toileting with Acapella 4. Confirmed full CODE STATUS 5. Await echocardiogram IMPRESSIONS: 1. Severe sepsis secondary to postobstructive pneumonia secondary to advancing stage IV left lung adenocarcinoma Patient with both enlargement of the left hilar mass, mediastinal lymphadenopathy, left adrenal mass and L2 lesion. Patient with significant leukocytosis and eosinophilia. This may be secondary to the tumor. Agree with antibiotics empirically, Mucinex and Acapella. Patient was initiated on anticoagulation, but does not appear that he is going to need a central line or other for hypotension. Decadron may help with skeletal pain and potential improved pulmonary clearance. Patient was significant improvement in leukocytosis and cultures are pending. Oncology and radiation oncology are aware of the patient situation. Await echocardiogram. 2. 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 Unclear how much dyspnea is present as patient does have some conversational issues associated with vocal cord paralysis. We will continue to monitor for stridor or other complications. Patient appears to be doing okay at this time. Did stress the patient importance of incentive spirometer for lung recruitment. 3. A. fib versus a flutter with RVR Patient appears to have responded appropriately to current therapy. We w ill continue to monitor with telemetry. Agree with echocardiogram. Patient would be at risk for potential invasion given the amount of mediastinal lymphadenopathy noted on CT scan. An MRI would be necessary to evaluate for cardiac invasion of the tumor leading to current situation. Inpatient E&M: 59176 Subs Hosp L2
[2020-07-31] MEDS: Psyllium 1 PACKET PO ×2 (09:31→21:44)
[2020-07-31] MEDS: Polyethylene Glycol 3350 17 GM PACKET PO (09:31)
--- NOTE | 2020-07-31 09:38 | PCA ---
Family states that they would like to set up own appointments for the patient.
--- NOTE | 2020-07-31 11:58 | CASEMGMT ---
ROCHLELE OAKES assessment: Face to Face with patient for initial transition planning/care coordination assessment. ROCHELLE OAKES introduced self and role at [facility], pt voices understanding and consents to assessment at this time. Pt is lying in bed in no distress at this time. Pt is A/Ox4 at this time and answers all questions appropriately at this time. Care providers, pharmacy, and demographics verified at this time. Presentation: Pt sent from [facility]'s office, appears SOB, heart racing on/off, left back pain-Dx in March with Lung CA-pt diaphoretic/clammy Admitting dx: Hypoxemia PCP: Marquise Specialists: Andra, onc; greg Pritchard onc; Marquise pulm Preferred Pharmacy: [facility] Insurance: MCR A/B, MMO Prescription Benefit: MCR D Living Will/HPOA: Pt states does have LW/HPOA and is aware that they are not on file at [facility] at this time. Pt is unsure of who he made HPOA at this time and states she will try to find paperwork at home. LNOK: Rosa Royal, ; Valerie Costello, daughter Living Arrangements: Pt states lives with in 1 story home and states no concerns at home at this time. Pt states is independent with ADL's. Transportation: Pt states drives self and states no transportation concerns at this time. DME/HHC: Pt states has the following DME: walker and shower bench. Pt states no need for any further DME at this time. Pt states no hx of HHC or SNF in the past. Pt states no concerns with going home at time of discharge. Pt states is retired. Pt states does not smoke or drink ETOH. Pt states no further concerns/needs at this time. CM to follow for any further discharge planning/needs. Advised pt to ask for CM if any further questions/concerns/needs arise, voices understanding. Pt Goal: Home Plan[place] ROCHELLE OAKES
--- NOTE | 2020-07-31 12:39 | PCM.PN.HOSP ---
Patient Problems: Active and Suspected Problems (Last Reviewed 07/30/20 @ 09:10 by Luh Sarah) Atrial flutter with rapid ventricular response (Acute) Left adrenal mass (Acute) Left postobstruct pneumonitis (Acute) Reason for Visit: Follow-up multiple issues including severe sepsis, left lung adenocarcinoma with wide metastasis, stage IV Objective: Patient is afebrile. Heart rate is in 100s. Pain is much better controlled. Patient is sitting in bed. Pulse ox 94% on room air. Discussed with the nursing staff patient got Decadron 4 mg IV 2 doses yesterday and 1 dose in the morning today. General: Alert, Oriented x3, Cooperative HEENT: Atraumatic, PERRLA, EOMI, Normocephalic Oral: No Gingival or Mucosal Lesions/ Ulcerations, Dry Mucosa Neck: Supple, No JVD, Negative Carotid Bruits Lungs: Diminished - Air entry diminished on left lower lobe as compared to right., Wheezes - Bilateral lower lobes wheezing, more on left side Cardiovascular: Regular rate, Regular Rhythm, Normal S1, Normal S2, No murmurs, Tachycardic Abdomen: Bowel Sounds Present, Soft, Non Tender, Non-Distended, Hypoactive Bowel Sounds, Spleen is palpable about 1 cm below left costal margin. Liver not enlarged : Urine output is adequate. Denies burning micturition Extremities: No edema, Capillary Refill Less than 3 Seconds, - Skin: No rashes, No breakdown Musculoskeletal: Arthritic Changes, Tenderness present over lumbar spine. Neurological: Cranial nerves II-XII grossly intact, Deep Tendon Reflexes 2+/4 and Symmetrical, Neuro grossly intact, Motor Exam 5/5 strength throughout Psych/Mental Status: Normal Affect, Appropriate Vitals/I&O's: Vital Signs Temp Pulse Resp BP Pulse Ox 97.6 F L 105 H 18 109/57 L 94 07/31/20 09:00 07/31/20 09:00 07/31/20 09:00 07/31/20 09:00 07/31/20 09:00 Oxygen Flow Rate (L/min) 2 Oxygen Delivery Method Room Air Weight: 177 lb 7.554 oz Body Mass Index (BMI) 26.0 Intake and Output for Last 24 Hours 07/29/20 07/30/20 07/31/20 23:59 23:59 23:59 Intake Total 2125 / 2125 970 / 970 Output Total 200 / 200 300 / 300 Balance 1925 / 192 670 / 670 Microbiology Past 72 Hours 07/30/20 19:45 Sputum, Expectorated/Coughed Gram Stain - Final 07/30/20 12:27 Mucosa - Nasopharyngeal Respiratory Panel (PCR) - Final 07/30/20 19:28 Urine, Clean Catch Streptococcus pneumoniae Antigen (M - Final 07/30/20 19:28 Urine, Clean Catch Legionella Antigen - Final Laboratory Results 07/30/20 10:20: Uric Acid 5.6, Lactate Dehydrogenase 356 H 07/30/20 10:20: Sodium Cancelled, Potassium Cancelled, Chloride Cancelled, Carbon Dioxide Cancelled, Anion Gap Cancelled, BUN Cancelled, Creatinine Cancelled, Est GFR (MDRD) Af Amer Cancelled, Est GFR (MDRD) Non-Af Cancelled, BUN/Creatinine Ratio Cancelled, Glucose Cancelled, Calcium Cancelled, Total Bilirubin 0.60, AST 23, ALT 19, Alkaline Phosphatase 93, Total Protein Cancelled, Albumin 2.6 L, Globulin Cancelled, Albumin/Globulin Ratio Cancelled 07/30/20 10:20: Magnesium 2.1 07/30/20 12:27: COVID-19 (ELLY) Not Detected 07/30/20 15:05: Lactic Acid 2.3 H* 07/30/20 15:05: Troponin I < 0.015 07/30/20 18:03: Troponin I < 0.015 07/30/20 18:46: Lactic Acid 2.2 H* 07/30/20 19:28: Urine Color Yellow, Urine Clarity Clear, Urine pH 7.0, Ur Specific [place] 1.010, Urine Protein 15 H, Urine Glucose (UA) Normal, Urine Ketones 5 H, Urine Occult Blood Negative, Urine Nitrite Negative, Urine Bilirubin Negative, Urine Urobilinogen 4 H, Ur Leukocyte Esterase Negative, Urine RBC 0 SEEN, Urine WBC 0 SEEN, Ur Squamous Epith Cells 0 SEEN, Urine Bacteria 0 SEEN, Urine Mucus 0 SEEN 07/30/20 : MRSA (PCR) Negative 07/31/20 05:20: Sodium 136, Potassium 4.2, Chloride 103, Carbon Dioxide 26.0, Anion Gap 7, BUN 12, Creatinine 0.70, Estim Creat Clear Calc 72.66, Est GFR (MDRD) Af Amer 144, Est GFR (MDRD) Non-Af 119, BUN/Creatinine Ratio 17.1, Glucose 151 H, Calcium 8.8, Phosphorus 3.5, Triglycerides 125, Cholesterol 137, LDL Cholesterol 81, VLDL Cholesterol 25, HDL Cholesterol 31 L, TSH 0.44 07/31/20 05:20: WBC 14.4 H, RBC 4.47 L, Hgb 13.0, Hct 40.2, MCV 89.9, MCH 29.1, MCHC 32.3, RDW Std Deviation 40.0, RDW Coeff of Sudarshan 12.2, Plt Count 294, MPV 9.4, Immature Gran % (Auto) 1.000 H, Neut % (Auto) 89.4 H, Lymph % (Auto) 5.0 L, [place] % (Auto) 4.2, Eos % (Auto) 0.1, Baso % (Auto) 0.3, Absolute Neuts (auto) 12.9 H, Absolute Lymphs (auto) 0.72 L, Nucleated RBC % 0 Current Medications Acetaminophen (Tylenol) 650 mg PO Q6H PRN PRN PRN Reason: Pain Score 1-10/Temp > 100.7 F Al Hydroxide/Mg Hydroxide (Mylanta Ii) 30 ml PO Q6H PRN PRN PRN Reason: Gastric Burning Albuterol Sulfate (Ventolin Aerosols) 2.5 mg INHALATION Q2H PRN PRN PRN Reason: SOB/Wheezing Albuterol/Ipratropium (Duoneb) 3 ml INHALATION Q4H.RT [facility] Last Admin: 07/31/20 11:20 Dose: 3 ml Documented by: Apixaban (Eliquis) 5 mg PO Q12 [facility] Last Admin: 07/30/20 19:55 Dose: Not Given Documented by: Bisacodyl (Dulcolax) 10 mg RECTAL DAILY [facility] Stop: 08/02/20 10:01 Last Admin: 07/31/20 09:05 Dose: 10 mg Documented by: Dexamethasone Sodium Phosphate (Dexamethasone 4 Mg/Ml Vial) 4 mg IV Q8 [facility] Gabapentin (Neurontin) 300 mg PO BIDCM [facility] Last Admin: 07/31/20 09:04 Dose: 300 mg Documented by: Guaifenesin (Mucinex) 1,200 mg PO BID [facility] Last Admin: 07/30/20 20:05 Dose: Not Given Documented by: Sodium Chloride () 1,000 mls @ 100 mls/hr IV .Q10H [facility] Last Admin: 07/31/20 04:42 Dose: 100 mls/hr Documented by: Piperacillin Sod/Tazobactam (Sod 3.375 gm/ Sodium Chloride) 50 mls @ 12.5 mls/hr IV Q8 [facility] Stop: 08/04/20 22:01 Last Admin: 07/31/20 05:08 Dose: 12.5 mls/hr Documented by: Sodium Chloride () 250 mls @ 15 mls/hr IV .[id number] PRN PRN Reason: Saline Flush Sodium Chloride () 250 mls @ 15 mls/hr IV .[id number] PRN PRN Reason: Additional IVPB Infusion Melatonin (Melatonin) 3 mg PO QHS PRN PRN PRN Reason: INSOMNIA Metoprolol Tartrate (Lopressor (Beta Will)) 25 mg PO BID [facility] Last Admin: 07/30/20 21:45 Dose: 25 mg Documented by: Morphine Sulfate () 2 mg IV Q3H PRN PRN PRN Reason: Pain Score 6-10 Nitroglycerin (Nitrostat) 0.4 mg SUBLINGUAL Q5M PRN PRN Reason: CARDIAC/CHEST PAIN Ondansetron HCl (Zofran) 4 mg IV Q8H PRN PRN PRN Reason: NAUSEA/VOMITING Oxycodone HCl (Oxyir) 10 mg PO Q4H PRN PRN PRN Reason: Pain Score 4-10 Oxycodone HCl (Oxycontin) 20 mg PO BID [facility] Last Admin: 07/31/20 09:30 Dose: 20 mg Documented by: Polyethylene Glycol (Miralax) 17 gm PO DAILY [facility] Last Admin: 07/31/20 09:31 Dose: 17 gm Documented by: Prochlorperazine Edisylate (Compazine Iv) 5 mg IV Q4H PRN PRN PRN Reason: Breakthrough Nausea/Vomiting Psyllium Hydrophilic Mucilloid (Metamucil) 1 packet PO BID [facility] Last Admin: 07/31/20 09:31 Dose: 1 packet Documented by: Senna/Docusate Sodium (Senokot-S, Angelica-Colace) 2 tablet PO BID [facility] Last Admin: 07/31/20 09:05 Dose: 2 tablet Documented by: STROKE Vital Signs/Narrative: Vital Signs Temp Pulse Resp BP Pulse Ox 07/31/20 09:00 97.6 F L 105 H 18 109/57 L 94 Medical Necessity - Tobacco Use Smoking Status: Former smoker Assessment/Plan All Active Problems (Last Reviewed 07/30/20 @ 09:10 by Luh Sarah) Atrial flutter with rapid ventricular response (Acute) Left adrenal mass (Acute) Left postobstruct pneumonitis (Acute) 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 fib with RVR and left lower lobe positive for pneumonitis 1. Atrial flutter/fibrillation with RVR: Patient is being admitted in PCU. Patient is converted to sinus rhythm. Started on metoprolol 25 mg p.o. twice daily and titrate the dose as per heart rate and blood pressure. 07/31: Metoprolol dose increased to 50 mg p.o. twice daily. 2D echo has been ordered. Patient denies any previous underlying cardiac disease. on Eliquis 5 mg p.o. twice daily 2. Left lower lobe postobstructive pneumonitis: Discussed with Dr. Cid. Started on IV Zosyn. Urinary antigens are negative. Respiratory panel negative. Gram stain shows 2+ gram-positive cocci, rare gram-negative rods and rare WBC. COVID-19 PCR negative. MRSA nasal screen negative. Continue bronchodilator, Mucinex, incentive spirometry and chest physiotherapy. Oxygen therapy to keep pulse ox 90%. 3. Left lung adenocarcinoma stage IV with metastasis to L2 lesion/ mass, left adrenal mass with spinal nerve compression: Patient had MRI done on July 25, 2020 which reported as lesion surrounding the posterior aspect of thecal sac with significant compression of thecal sac about 4 mm in AP diameter suggestive of epidural tumor producing severe spinal stenosis with effacement of thecal sac. There is edema of the adjacent paraspinal musculature. 07/31: Discussed with Dr. Orellana, edition oncologist. Patient is going for radiotherapy today. Had 1 radiotherapy session yesterday. Pain is better controlled. She is also seen by Dr. Soto although there is no note. Oxycodone controlled release and as needed, morphine. Patient is aggressive bowel regimen 4. Patient has chronic vocal cord paralysis with hoarseness, reactive airway disease 5. VTE prophylaxis, high risk: Eliquis 5 mg p.o. twice daily. Bilateral SCDs Clinical updates were given to patient's near the bedside. Living will/advanced directive/end of life care: Patient does not have living will or advanced directive. His daughter, Ms. Valerie Costello is power of track mechanic for health. After discussion of procedures involved with full code, DNR CC arrest and DNR CC, the patient and his daughter opted for full code. Will do further palliative care consult to help for planning for further oncology treatment and relief of pain. Patient does want artificial life support including intubation, tube feed, ventilator and/chest compression, central venous catheter, vasopressor and DC shock if needed Total time spent in [id number] encounter in discussion of advanced directive 16 minutes. Inpatient E&M: 20912 Subs Hosp L2
[2020-07-31] MEDS: guaiFENesin 1,200 MG Tablet 1200 MG PO ×2 (12:48→21:45)
[2020-07-31] MEDS: APIXABAN 5 MG TABLET PO ×2 (12:48→21:45)
[2020-07-31] MEDS: Metoprolol Tartrate 25 MG Tablet PO ×2 (12:56→13:54)
[2020-07-31 13:46] LABS: Pathologist Review Reviewed
[2020-07-31] MEDS: oxyCODONE 5 MG Tablet 10 MG PO (13:57)
[2020-07-31] MEDS: proCHLORPERazine 10 MG/2 ML Vial 5 MG IV (16:59)
[2020-07-31] MEDS: Metoprolol Tartrate 50 MG Tablet PO (21:44)
[2020-08-01] VITALS (15 sets, daily range): BP systolic 101–129; BP diastolic 60–71; PULSE 74–108; RESP 16–20; TEMP 36.4–37.1; O2SAT 92–94
[2020-08-01] MEDS: 0.9% Normal Saline 1,000 ML 100 ML IV ×2 (02:40→13:45)
[2020-08-01] MEDS: Ipratropium/Albuterol Sulfate 3 ML AMPUL.NEB INHALATION ×6 (03:07→22:41)
[2020-08-01] MEDS: dexAMETHasone 4 MG/ML Vial IV ×3 (06:18→20:59)
[2020-08-01] MEDS: Gabapentin 300 MG Capsule PO ×2 (08:20→16:29)
--- NOTE | 2020-08-01 08:47 | PCM.PN.PUL ---
Patient Problems: Active and Suspected Problems (Last Reviewed 07/30/20 @ 09:10 by Luh Sarah) Atrial flutter with rapid ventricular response (Acute) Left adrenal mass (Acute) Left postobstruct pneumonitis (Acute) Subjective: Patient did okay overnight. Patient continues to do well on room air at rest. Ambulation is significantly limited secondary to back/coccyx pain. Patient does report limited coughing secondary to exacerbation of back pain. Patient is not having much production with coughing despite using Acapella and incentive spirometer. - Physical Exam Vitals/I&O's: Vital Signs Temp Pulse Resp BP Pulse Ox 36.5 C L 105 H 16 123/69 H 92 08/01/20 08:05 08/01/20 08:05 08/01/20 08:10 08/01/20 08:05 08/01/20 08:05 Oxygen Flow Rate (L/min) 2 Oxygen Delivery Method Room Air Weight: 82.5 kg Body Mass Index (BMI) 26.0 Intake and Output for Last 24 Hours 07/30/20 07/31/20 08/01/20 23:59 23:59 23:59 Intake Total 2125 / 2125 2931.67 / 2931.67 1265 / 1265 Output Total 200 / 200 700 / 700 400 / 400 Balance 1925 / 1925 2231.67 / 2231.67 865 / 865 General: Alert, Oriented x3, Cooperative, No apparent distress, - - Speaking in full sentences HEENT: Atraumatic, PERRLA, EOMI, Normocephalic, - - No scleral icterus or injection noted Oral: Moist Mucosa, No Gingival or Mucosal Lesions/ Ulcerations Neck: Supple, No JVD, No Nodes, Trachea Midline Lungs: No rhonchi, No wheeze, No rales, Diminished - Left greater than right base Cardiovascular: Normal S1, Normal S2, No murmurs, No rub noted, No Gallop, Tachycardic Abdomen: Bowel Sounds Present, Soft, Non Tender, Non-Distended Extremities: No clubbing, No cyanosis, No edema, Capillary Refill Less than 3 Seconds Skin: No rashes, No breakdown Musculoskeletal: No Tenderness to Palpation of Joints or Extremities Lymphatic: No Cervical, Supraclavicular, or Inguinal Adenopathy Neurological: Cranial nerves II-XII grossly intact, Neuro grossly intact, Sensory exam intact to light touch and pain, - - Limited movement of legs secondary to back pain Psych/Mental Status: Alert and oriented to time, place, person, mood and affect Microbiology Past 72 Hours 07/30/20 19:45 Sputum, Expectorated/Coughed Gram Stain - Final 07/30/20 19:45 Sputum, Expectorated/Coughed Respiratory Culture - Preliminary Mixed normal respiratory yari. No Haemophilus, Streptococcus pneumoniae, beta-hemolytic Streptococcus or Staphylococcus aureus isolated. 07/30/20 12:27 Mucosa - Nasopharyngeal Respiratory Panel (PCR) - Final 07/30/20 19:28 Urine, Clean Catch Streptococcus pneumoniae Antigen (M - Final 07/30/20 19:28 Urine, Clean Catch Legionella Antigen - Final Laboratory Results 07/30/20 10:20: Diff Path Review Reviewed Current Medications Acetaminophen (Tylenol) 650 mg PO Q6H PRN PRN PRN Reason: Pain Score 1-10/Temp > 100.7 F Al Hydroxide/Mg Hydroxide (Mylanta Ii) 30 ml PO Q6H PRN PRN PRN Reason: Gastric Burning Albuterol Sulfate (Ventolin Aerosols) 2.5 mg INHALATION Q2H PRN PRN PRN Reason: SOB/Wheezing Albuterol/Ipratropium (Duoneb) 3 ml INHALATION Q4H.RT [facility] Last Admin: 08/01/20 06:39 Dose: 3 ml Documented by: Apixaban (Eliquis) 5 mg PO Q12 [facility] Last Admin: 07/31/20 21:45 Dose: 5 mg Documented by: Bisacodyl (Dulcolax) 10 mg RECTAL DAILY [facility] Stop: 08/02/20 10:01 Last Admin: 07/31/20 09:05 Dose: 10 mg Documented by: Dexamethasone Sodium Phosphate (Dexamethasone 4 Mg/Ml Vial) 4 mg IV Q8 [facility] Last Admin: 08/01/20 06:18 Dose: 4 mg Documented by: Gabapentin (Neurontin) 300 mg PO BIDCM [facility] Last Admin: 08/01/20 08:20 Dose: 300 mg Documented by: Guaifenesin (Mucinex) 1,200 mg PO BID [facility] Last Admin: 07/31/20 21:45 Dose: 1,200 mg Documented by: Sodium Chloride () 1,000 mls @ 100 mls/hr IV .Q10H [facility] Last Admin: 08/01/20 02:40 Dose: 100 mls/hr Documented by: Piperacillin Sod/Tazobactam (Sod 3.375 gm/ Sodium Chloride) 50 mls @ 12.5 mls/hr IV Q8 [facility] Stop: 08/04/20 22:01 Last Admin: 08/01/20 06:19 Dose: 12.5 mls/hr Documented by: Sodium Chloride () 250 mls @ 15 mls/hr IV .[id number] PRN PRN Reason: Saline Flush Sodium Chloride () 250 mls @ 15 mls/hr IV .[id number] PRN PRN Reason: Additional IVPB Infusion Melatonin (Melatonin) 3 mg PO QHS PRN PRN PRN Reason: INSOMNIA Metoprolol Tartrate (Metoprolol Tartrate 50 Mg Tablet) 50 mg PO BID [facility] Last Admin: 07/31/20 21:44 Dose: 50 mg Documented by: Morphine Sulfate () 2 mg IV Q3H PRN PRN PRN Reason: Pain Score 6-10 Nitroglycerin (Nitrostat) 0.4 mg SUBLINGUAL Q5M PRN PRN Reason: CARDIAC/CHEST PAIN Ondansetron HCl (Ondansetron 4 Mg/2 Ml Vial) 4 mg IV Q6H PRN PRN PRN Reason: NAUSEA/VOMITING Oxycodone HCl (Oxyir) 10 mg PO Q4H PRN PRN PRN Reason: Pain Score 4-10 Last Admin: 07/31/20 13:57 Dose: 10 mg Documented by: Oxycodone HCl (Oxycontin) 20 mg PO BID [facility] Last Admin: 07/31/20 21:45 Dose: 20 mg Documented by: Polyethylene Glycol (Miralax) 17 gm PO DAILY [facility] Last Admin: 07/31/20 09:31 Dose: 17 gm Documented by: Prochlorperazine Edisylate (Compazine Iv) 5 mg IV Q4H PRN PRN PRN Reason: Breakthrough Nausea/Vomiting Last Admin: 07/31/20 16:59 Dose: 5 mg Documented by: Psyllium Hydrophilic Mucilloid (Metamucil) 1 packet PO BID [facility] Last Admin: 07/31/20 21:44 Dose: 1 packet Documented by: Senna/Docusate Sodium (Senokot-S, Angelica-Colace) 2 tablet PO BID [facility] Last Admin: 07/31/20 21:44 Dose: 2 tablet Documented by: Medical Necessity - Tobacco Use Smoking Status: Former smoker Assessment/Plan All Active Problems (Last Reviewed 07/30/20 @ 09:10 by Luh Sarah) Atrial flutter with rapid ventricular response (Acute) Left adrenal mass (Acute) Left postobstruct pneumonitis (Acute) 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 Continue telemetry to monitor cardiac status 2. Agree with antibiotics, Decadron, bronchodilators and Mucinex 3. Walking oximetry prior to discharge 4. Confirmed full CODE STATUS 5. Steroids likely not necessary from a pulmonary perspective, but may help with bone pain 6. Likely okay to transition to p.o. antibiotics from a pulmonary perspective IMPRESSIONS: 1. Severe sepsis secondary to postobstructive pneumonia secondary to advancing stage IV left lung adenocarcinoma Patient with both enlargement of the left hilar mass, mediastinal lymphadenopathy, left adrenal mass and L2 lesion. Patient with significant leukocytosis and eosinophilia. This may be secondary to the tumor. Agree with antibiotics empirically, Mucinex and Acapella. Patient was initiated on anticoagulation, but does not appear that he is going to need a central line or other for hypotension. Decadron may help with skeletal pain, but is likely not contributing much to his pulmonary symptomatology. Patient was significant improvement in leukocytosis and cultures are pending. Oncology and radiation oncology are aware of the patient situation. Await echocardiogram. Will obtain a walking oximetry. 2. 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 Unclear how much dyspnea is present as patient does have some conversational issues associated with vocal cord paralysis. We will continue to monitor for stridor or other complications. Patient appears to be doing okay at this time. Did stress the patient importance of incentive spirometer for lung recruitment. 3. A. fib versus a flutter with RVR Patient appears to have responded appropriately to current therapy. We will continue to monitor with telemetry. Agree with echocardiogram. Patient would be at risk for potential invasion given the amount of mediastinal lymphadenopathy noted on CT scan. An MRI would be necessary to evaluate for cardiac invasion of the tumor leading to current situation. Inpatient E&M: 95921 Subs Hosp L2
[2020-08-01] MEDS: Psyllium 1 PACKET PO ×2 (10:02→20:59)
[2020-08-01] MEDS: Polyethylene Glycol 3350 17 GM PACKET PO (10:03)
[2020-08-01] MEDS: Metoprolol Tartrate 50 MG Tablet PO ×2 (10:04→20:59)
[2020-08-01] MEDS: guaiFENesin 1,200 MG Tablet 1200 MG PO ×2 (10:04→20:58)
[2020-08-01] MEDS: APIXABAN 5 MG TABLET PO ×2 (10:04→20:59)
[2020-08-01] MEDS: Senna/Docusate Sodium 1 Tablet 2 TABLET PO ×2 (10:05→20:59)
[2020-08-01] MEDS: Bisacodyl 10 MG Suppository RECTAL (12:01)
--- NOTE | 2020-08-01 16:56 | PN_ITS ---
Patient Problems: Active and Suspected Problems (Last Reviewed 07/30/20 @ 09:10 by Luh Sarah) Atrial flutter with rapid ventricular response (Acute) Left adrenal mass (Acute) Left postobstruct pneumonitis (Acute) Subjective: Patient was seen and examined today, I talked briefly with his , patient states that he still has lower back pain, he states that it is not any worse than it was at home however. Patient underwent another round of radiation treatment today and saw his oncologist. - Physical Exam Vitals/I&O's: Vital Signs Temp Pulse Resp BP Pulse Ox 97.9 F 101 H 20 H 104/61 92 08/01/20 13:28 08/01/20 14:56 08/01/20 14:56 08/01/20 13:28 08/01/20 15:18 Oxygen Flow Rate (L/min) 2 Oxygen Delivery Method Room Air Weight: 82.5 kg Body Mass Index (BMI) 26.0 Intake and Output for Last 24 Hours 07/30/20 07/31/20 08/01/20 23:59 23:59 23:59 Intake Total 5 / 2125 2931.67 / 2931.67 2315 / 2315 Output Total 200 / 200 700 / 700 700 / 700 Balance 1925 / 1925 2231.67 / 2231.67 1615 / 1615 General: Alert, Oriented x3, Cooperative, No apparent distress, Well developed, Well nourished HEENT: Atraumatic, PERRLA, EOMI, Normocephalic Oral: Moist Mucosa Neck: Supple, No JVD, Trachea Midline, Thyroid Normal Size and Texture Lungs: Clear to auscultation, Normal air movement, No rhonchi, No wheeze, No rales Cardiovascular: Regular rate, Regular Rhythm, Normal S1, Normal S2, No murmurs, PMI Normal, No rub noted, No Gallop Abdomen: Bowel Sounds Present, Soft, Non Tender, Non-Distended Extremities: No clubbing, No cyanosis, No edema, Capillary Refill Less than 3 Seconds Skin: No rashes, No breakdown Musculoskeletal: No Tenderness to Palpation of Joints or Extremities Neurological: Cranial nerves II-XII grossly intact, Neuro grossly intact, Se nsory exam intact to light touch and pain Psych/Mental Status: Normal Affect, Appropriate, Alert and oriented to time, place, person, mood and affect Microbiology Past 72 Hours 07/30/20 19:45 Sputum, Expectorated/Coughed Gram Stain - Final 07/30/20 19:45 Sputum, Expectorated/Coughed Respiratory Culture - Preliminary Mixed normal respiratory yari. No Haemophilus, Streptococcus pneumoniae, beta-hemolytic Streptococcus or Staphylococcus aureus isolated. 07/30/20 12:27 Mucosa - Nasopharyngeal Respiratory Panel (PCR) - Final 07/30/20 19:28 Urine, Clean Catch Streptococcus pneumoniae Antigen (M - Final 07/30/20 19:28 Urine, Clean Catch Legionella Antigen - Final Current Medications Acetaminophen (Tylenol) 650 mg PO Q6H PRN PRN PRN Reason: Pain Score 1-10/Temp > 100.7 F Al Hydroxide/Mg Hydroxide (Mylanta Ii) 30 ml PO Q6H PRN PRN PRN Reason: Gastric Burning Albuterol Sulfate (Ventolin Aerosols) 2.5 mg INHALATION Q2H PRN PRN PRN Reason: SOB/Wheezing Albuterol/Ipratropium (Duoneb) 3 ml INHALATION Q4H.RT [facility] Last Admin: 08/01/20 14:56 Dose: 3 ml Documented by: Apixaban (Eliquis) 5 mg PO Q12 [facility] Last Admin: 08/01/20 10:04 Dose: 5 mg Documented by: Bisacodyl (Dulcolax) 10 mg RECTAL DAILY [facility] Stop: 08/02/20 10:01 Last Admin: 08/01/20 12:01 Dose: 10 mg Documented by: Dexamethasone Sodium Phosphate (Dexamethasone 4 Mg/Ml Vial) 4 mg IV Q8 [facility] Last Admin: 08/01/20 13:40 Dose: 4 mg Documented by: Gabapentin (Neurontin) 300 mg PO BIDCM [facility] Last Admin: 08/01/20 16:29 Dose: 300 mg Documented by: Guaifenesin (Mucinex) 1,200 mg PO BID [facility] Last Admin: 08/01/20 10:04 Dose: 1,200 mg Documented by: Sodium Chloride () 1,000 mls @ 100 mls/hr IV .Q10H [facility] Last Admin: 08/01/20 13:45 Dose: 100 mls/hr Documented by: Piperacillin Sod/Tazobactam (Sod 3.375 gm/ Sodium Chloride) 50 mls @ 12.5 mls/hr IV Q8 [facility] Stop: 08/04/20 22:01 Last Admin: 08/01/20 13:40 Dose: 12.5 mls/hr Documented by: Sodium Chloride () 250 mls @ 15 mls/hr IV .[id number] PRN PRN Reason: Saline Flush Sodium Chloride () 250 mls @ 15 mls/hr IV .[id number] PRN PRN Reason: Additional IVPB Infusion Melatonin (Melatonin) 3 mg PO QHS PRN PRN PRN Reason: INSOMNIA Metoprolol Tartrate (Metoprolol Tartrate 50 Mg Tablet) 50 mg PO BID [facility] Last Admin: 08/01/20 10:04 Dose: 50 mg Documented by: Morphine Sulfate () 2 mg IV Q3H PRN PRN PRN Reason: Pain Score 6-10 Nitroglycerin (Nitrostat) 0.4 mg SUBLINGUAL Q5M PRN PRN Reason: CARDIAC/CHEST PAIN Ondansetron HCl (Ondansetron 4 Mg/2 Ml Vial) 4 mg IV Q6H PRN PRN PRN Reason: NAUSEA/VOMITING Oxycodone HCl (Oxyir) 10 mg PO Q4H PRN PRN PRN Reason: Pain Score 4-10 Last Admin: 07/31/20 13:57 Dose: 10 mg Documented by: Oxycodone HCl (Oxycontin) 20 mg PO BID [facility] Last Admin: 08/01/20 10:10 Dose: 20 mg Documented by: Polyethylene Glycol (Miralax) 17 gm PO DAILY [facility] Last Admin: 08/01/20 10:03 Dose: 17 gm Documented by: Prochlorperazine Edisylate (Compazine Iv) 5 mg IV Q4H PRN PRN PRN Reason: Breakthrough Nausea/Vomiting Last Admin: 07/31/20 16:59 Dose: 5 mg Documented by: Psyllium Hydrophilic Mucilloid (Metamucil) 1 packet PO BID [facility] Last Admin: 08/01/20 10:02 Dose: 1 packet Documented by: Senna/Docusate Sodium (Senokot-S, Angelica-Colace) 2 tablet PO BID [facility] Last Admin: 08/01/20 10:05 Dose: 2 tablet Documented by: Medical Necessity - Tobacco Use Smoking Status: Former smoker Assessment/Plan All Active Problems (Last Reviewed 10/12/20 @ 09:10 by Luh Sarah) Atrial flutter with rapid ventricular response (Acute) Left adrenal mass (Acute) Left postobstruct pneumonitis (Acute) 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 Echocardiogram today showed evidence of pulmonary hypertension-moderate with preserved ejection fraction. No significant valvular heart disease was noted. #2 adenocarcinoma of the left lung with metastases-patient is currently undergoing radiation treatment and will follow up with oncology #3 left lower lobe postobstructive pneumonitis-patient is on antibiotics #4 severe sepsis secondary to postobstructive pneumonitis left lung-continue present antibiotics #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 secondary to adenocarcinoma of the lung #6 pulmonary hypertension #7 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- continue palliative radiation to L2 and his left lung, continue Decadron Inpatient E&M: 52331 Subs Hosp L2
[2020-08-01] MEDS: MELATONIN 3 MG TABLET PO (22:05)
[2020-08-02] VITALS (11 sets, daily range): BP systolic 118–152; BP diastolic 72–95; PULSE 82–119; RESP 18–20; TEMP 36.9–37.2; O2SAT 88–97
[2020-08-02] MEDS: 0.9% Normal Saline 1,000 ML 100 ML IV ×2 (00:03→09:55)
[2020-08-02] MEDS: oxyCODONE 5 MG Tablet 10 MG PO (00:03)
[2020-08-02] MEDS: Morphine 2 MG/ML Syringe IV ×3 (02:38→13:37)
[2020-08-02] MEDS: Ipratropium/Albuterol Sulfate 3 ML AMPUL.NEB INHALATION ×3 (03:12→10:36)
[2020-08-02] MEDS: dexAMETHasone 4 MG/ML Vial IV (05:58)
[2020-08-02] MEDS: Gabapentin 300 MG Capsule PO (08:44)
--- NOTE | 2020-08-02 09:12 | PN_ITS ---
Patient Problems: Active and Suspected Problems (Last Reviewed 07/30/20 @ 09:10 by Luh Sarah) Atrial flutter with rapid ventricular response (Acute) Left adrenal mass (Acute) Left postobstruct pneumonitis (Acute) Subjective: Patient did okay yesterday afternoon. Patient states he was able to ambulate with therapy for a short period of time, but did desaturate to 86%. This does not appear to be documented that I can find. Patient had excruciating leg pain overnight and attributes this to walking. - Physical Exam Vitals/I&O's: Vital Signs Temp Pulse Resp BP Pulse Ox 36.9 C 85 20 H 148/80 H 97 08/02/20 02:00 08/02/20 06:53 08/02/20 06:53 08/02/20 02:00 08/02/20 06:53 Oxygen Flow Rate (L/min) 2 Oxygen Delivery Method Room Air Weight: 82.2 kg Body Mass Index (BMI) 26.0 Intake and Output for Last 24 Hours 07/31/20 08/01/20 08/02/20 23:59 23:59 23:59 Intake Total 2931.67 / 2931.67 3365 / 4165 1090 / 1090 Output Total 700 / 700 700 / 1200 800 / 800 Balance 2231.67 / 2231.67 2665 / 2965 290 / 290 General: Alert, Oriented x3, Cooperative, - - Mild conversational dyspnea. HEENT: Atraumatic, PERRLA, EOMI, Normocephalic, - - Hoarseness noted. Oral: Moist Mucosa, No Gingival or Mucosal Lesions/ Ulcerations Neck: Supple, No JVD, No Nodes, Trachea Midline Lungs: No rhonchi, No rales, Diminished - Left base, Wheezes - Left greater than right Cardiovascular: Normal S1, Normal S2, No murmurs, No rub noted, No Gallop, Tachycardic Abdomen: Bowel Sounds Present, Soft, Non Tender, Non-Distended Extremities: No clubbing, No cyanosis, No edema, Capillary Refill Less than 3 Seconds Skin: - Musculoskeletal: No Tenderness to Palpation of Joints or Extremities - No change compared to previous Lymphatic: No Cervical, Supraclavicular, or Inguinal Adenopathy Neurological: Cranial nerves II-XII grossly intact, Neuro grossly intact, Motor Exam 5/5 strength throughout Psych/Mental Status: Alert and oriented to time, place, person, mood and affect Microbiology Past 72 Hours 07/30/20 18:03 Blood Culture (Wb) - Anticubital Left Blood Culture - Preliminary No growth in 48 hours. 07/30/20 19:45 Sputum, Expectorated/Coughed Gram Stain - Final 07/30/20 19:45 Sputum, Expectorated/Coughed Respiratory Culture - Preliminary Mixed normal respiratory yari. No Haemophilus, Streptococcus pneumoniae, beta-hemolytic Streptococcus or Staphylococcus aureus isolated. 07/30/20 12:27 Mucosa - Nasopharyngeal Respiratory Panel (PCR) - Final 07/30/20 19:28 Urine, Clean Catch Streptococcus pneumoniae Antigen (M - Final 07/30/20 19:28 Urine, Clean Catch Legionella Antigen - Final Current Medications Acetaminophen (Tylenol) 650 mg PO Q6H PRN PRN PRN Reason: Pain Score 1-10/Temp > 100.7 F Al Hydroxide/Mg Hydroxide (Mylanta Ii) 30 ml PO Q6H PRN PRN PRN Reason: Gastric Burning Albuterol Sulfate (Ventolin Aerosols) 2.5 mg INHALATION Q2H PRN PRN PRN Reason: SOB/Wheezing Albuterol/Ipratropium (Duoneb) 3 ml INHALATION Q4H.RT [facility] Last Admin: 08/02/20 06:53 Dose: 3 ml Documented by: Apixaban (Eliquis) 5 mg PO Q12 [facility] Last Admin: 08/01/20 20:59 Dose: 5 mg Documented by: Bisacodyl (Dulcolax) 10 mg RECTAL DAILY [facility] Stop: 08/02/20 10:01 Last Admin: 08/01/20 12:01 Dose: 10 mg Documented by: Dexamethasone Sodium Phosphate (Dexamethasone 4 Mg/Ml Vial) 4 mg IV Q8 [facility] Last Admin: 08/02/20 05:58 Dose: 4 mg Documented by: Gabapentin (Neurontin) 300 mg PO BIDCM [facility] Last Admin: 08/02/20 08:44 Dose: 300 mg Documented by: Guaifenesin (Mucinex) 1,200 mg PO BID [facility] Last Admin: 08/01/20 20:58 Dose: 1,200 mg Documented by: Sodium Chloride () 1,000 mls @ 100 mls/hr IV .Q10H [facility] Last Admin: 08/02/20 00:03 Dose: 100 mls/hr Documented by: Piperacillin Sod/Tazobactam (Sod 3.375 gm/ Sodium Chloride) 50 mls @ 12.5 mls/hr IV Q8 [facility] Stop: 08/04/20 22:01 Last Admin: 08/02/20 05:58 Dose: 12.5 mls/hr Documented by: Sodium Chloride () 250 mls @ 15 mls/hr IV .[id number] PRN PRN Reason: Saline Flush Sodium Chloride () 250 mls @ 15 mls/hr IV .[id number] PRN PRN Reason: Additional IVPB Infusion Melatonin (Melatonin) 3 mg PO QHS PRN PRN PRN Reason: INSOMNIA Last Admin: 08/01/20 22:05 Dose: 3 mg Documented by: Metoprolol Tartrate (Metoprolol Tartrate 50 Mg Tablet) 50 mg PO BID [facility] Last Admin: 08/01/20 20:59 Dose: 50 mg Documented by: Morphine Sulfate () 2 mg IV Q3H PRN PRN PRN Reason: Pain Score 6-10 Last Admin: 08/02/20 08:43 Dose: 2 mg Documented by: Nitroglycerin (Nitrostat) 0.4 mg SUBLINGUAL Q5M PRN PRN Reason: CARDIAC/CHEST PAIN Ondansetron HCl (Ondansetron 4 Mg/2 Ml Vial) 4 mg IV Q6H PRN PRN PRN Reason: NAUSEA/VOMITING Oxycodone HCl (Oxyir) 10 mg PO Q4H PRN PRN PRN Reason: Pain Score 4-10 Last Admin: 08/02/20 00:03 Dose: 10 mg Documented by: Oxycodone HCl (Oxycontin) 20 mg PO BID [facility] Last Admin: 08/01/20 20:48 Dose: 20 mg Documented by: Polyethylene Glycol (Miralax) 17 gm PO DAILY [facility] Last Admin: 08/01/20 10:03 Dose: 17 gm Documented by: Prochlorperazine Edisylate (Compazine Iv) 5 mg IV Q4H PRN PRN PRN Reason: Breakthrough Nausea/Vomiting Last Admin: 07/31/20 16:59 Dose: 5 mg Documented by: Psyllium Hydrophilic Mucilloid (Metamucil) 1 packet PO BID [facility] Last Admin: 08/01/20 20:59 Dose: 1 packet Documented by: Senna/Docusate Sodium (Senokot-S, Angeliac-Colace) 2 tablet PO BID [facility] Last Admin: 08/01/20 20:59 Dose: 2 tablet Documented by: Medical Necessity - Tobacco Use Smoking Status: Former smoker Assessment/Plan All Active Problems (Last Reviewed 07/30/20 @ 09:10 by Luh Sarah) Atrial flutter with rapid ventricular response (Acute) Left adrenal mass (Acute) Left postobstruct pneumonitis (Acute) 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 Continue telemetry to monitor cardiac status 2. Agree with antibiotics, Decadron, bronchodilators and Mucinex 3. Walking oximetry prior to discharge 4. Retest oxygenation. Likely benefit from oxygen at discharge 5. Steroids likely not necessary from a pulmonary perspective, but may help with bone pain 6. Likely okay to transition to p.o. antibiotics and complete a 10-day course from a pulmonary perspective IMPRESSIONS: 1. Severe sepsis secondary to postobstructive pneumonia secondary to advancing stage IV left lung adenocarcinoma Patient with both enlargement of the left hilar mass, mediastinal lymphadenopathy, left adrenal mass and L2 lesion. Patient with significant leukocytosis and eosinophilia. This may be secondary to the tumor. Agree with antibiotics empirically, Mucinex and Acapella. Patient was initiated on anticoagulation, but does not appear that he is going to need a central line or other for hypotension. Decadron may help with skeletal pain, but is likely not contributing much to his pulmonary symptomatology. Patient has received radiation therapy. Patient was significant improvement in leukocytosis and cultures are pending. Oncology and radiation oncology are aware of the patient situation. Echocardiogram does report some significant pulmonary artery hypertension. Could attempt gentle diuresis to help. However, increased pressure could be secondary to proximal restriction from the lung mass. Will obtain a walking oximetry. 2. 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 Unclear how much dyspnea is present as patient does have some conversational issues associated with vocal cord paralysis. We will continue to monitor for stridor or other complications. Patient appears to be doing okay at this time. Did stress the patient importance of incentive spirometer for lung recruitment. 3. A. fib versus a flutter with RVR Patient appears to have responded appropriately to current therapy. We will continue to monitor with telemetry. Agree with echocardiogram. Patient would be at risk for potential invasion given the amount of mediastinal lymphadenopathy noted on CT scan. An MRI would be necessary to evaluate for cardiac invasion of the tumor leading to current situation. Inpatient E&M: [id number] Subs Hosp L2
[2020-08-02] MEDS: Polyethylene Glycol 3350 17 GM PACKET PO (09:47)
[2020-08-02] MEDS: Psyllium 1 PACKET PO (09:48)
[2020-08-02] MEDS: Bisacodyl 10 MG Suppository RECTAL (09:48)
[2020-08-02] MEDS: Senna/Docusate Sodium 1 Tablet 2 TABLET PO (09:49)
[2020-08-02] MEDS: guaiFENesin 1,200 MG Tablet 1200 MG PO (09:52)
[2020-08-02] MEDS: Metoprolol Tartrate 50 MG Tablet PO (09:52)
[2020-08-02] MEDS: APIXABAN 5 MG TABLET PO (09:53)
--- NOTE | 2020-08-02 12:17 | CASEMGMT ---
Addendum entered by Stella Purvis 08/02/20 13:45: 1330 Per Soumya at [facility], delivery motorcycle driver is on way over at this time with e-tank and pt/ provided with Eliquis 30 day free trial card at this time. Pt/ voice no further questions/concerns/needs at this time. Pt to be discharged and taken by w/c to radiation treatment in the [place] at this time. Alireza BYRD CM Original Note: Pt does qualify for 2liters with exertion home oxygen at this time. Pt/ state no preference for home oxygen at this time. Script obtained and faxed to [facility] at this time. Luba at [facility] aware that pt needs to be discharged to get down to radiation for a 1400 appt, voices understanding and states they will try and get tank delivered jennifer. Pt also to be sent home on Eliquis at discharge and Dr. Knox calling script in at this time. CM to follow. Alireza BYRD CM
--- NOTE | 2020-08-02 12:36 | PCM.DC ---
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 YOU MAY USE AN ALBUTEROL INHALER 2 PUFFS EVERY FOUR HOURS NEEDED FOR SHORTNESS OF BREATH. DO NOT TAKE ANY ASPIRIN, ALLEVE, OR IBUPROFEN. CONTACT YOUR PHYSICIAN IF YOU HAVE ANY ABNORMAL BLEEDING Allergies/Adverse Reactions: Allergies prednisone Adverse Reaction (Verified 08/01/20 11:02) redness/itching HAS HAD PREDNISONE TWICE SINCE THIS REACTION AND NO ISSUES Medications to take at Discharge Ascorbic Acid [Vitamin C] 500 mg PO DAILY 05/03/20 Multivitamin 1 ea PO DAILY 05/03/20 Dexamethasone [Decadron] 4 mg PO BIDCM #60 tab 07/30/20 Amoxicillin/Potassium Clav [Augmentin 875-125 Tablet] 1 ea PO BIDCM #14 tab 08/02/20 Apixaban [Eliquis] 5 mg PO Q12 #60 tab 08/02/20 Ipratropium/Albuterol Respimat [Combivent Respimat Inhal [place]] 1 puff INHALATION 4X/DAY #1 inhaler 08/02/20 Metoprolol Tartrate [Lopressor (beta campos)] 50 mg PO BID #60 tab 08/02/20 Oxycodone CR [Oxycontin] 20 mg PO TID 20 Days #60 tab 08/02/20 Oxycodone [Oxyir] 10 - 15 mg PO Q4H PRN PRN 7 Days #60 tab 08/02/20 Polyethylene Glycol 3350 [Miralax] 17 gm PO DAILY packet 08/02/20 Senna/Docusate Sodium [Senokot-S] 2 tab PO BID tab 08/02/20 The following prescriptions were given: Amoxicillin/Potassium Clav [Augmentin 875-125 Tablet] 1 ea PO BIDCM #14 tab Transmission Status: Received by [facility]/pharmacy #[id number] Ipratropium/Albuterol Respimat [Combivent Respimat Inhal [place]] 1 puff INHALATION 4X/DAY #1 inhaler Transmission Status: Pending to [facility]pharmacy #[id number] Apixaban [Eliquis] 5 mg PO Q12 #60 tab Transmission Status: Received by [id number] Metoprolol Tartrate [Lopressor (beta campos)] 50 mg PO BID #60 tab Transmission Status: Received by [id number] Oxycodone CR [Oxycontin] 20 mg PO TID 20 Days #60 tab Transmission Status: Received by [id number] Oxycodone [Oxyir] 10 - 15 mg PO Q4H PRN PRN 7 Days #60 tab PRN Reason: Pain Score 4-10 Transmission Status: Received by [id number] Orders to be completed after discharge: RAD ONC: CT Sim [RAD[facility]ONC[facility]] Facility: [facility], Location: [facility] Primary Care Physician: Carlos Camarillo DO [Primary Care Provider] - Please follow up with your Primary Care Physician in: in 2-3 weeks Test Results: Test results from this visit will be discussed in further detail at your follow-up appointment, if applicable. Please Follow Up With: Bandar Silverman MD When: as directed Please Follow Up With: Bryan Pritchard DO When: as directed Please Follow Up With: Miguel Camarillo DO When: IN 2 WEEKS-CALL FOR APPOINTMENT
--- NOTE | 2020-08-03 09:15 | PCM.DC.SUM ---
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 #3 left lower lobe postobstructive pneumonitis #4 severe sepsis secondary to postobstructive pneumonitis left [id number] unknown #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 secondary to adenocarcinoma of the lung #6 pulmonary hypertension #7 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 #8 hypoxia secondary to #2 and #3 #9 probable chronic obstructive pulmonary disease - Secondary Discharge Diagnosis Chronic Problems: Chronic Problems (Last Reviewed 07/30/20 @ 09:10 by Luh Sarah) 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 Patient had been diagnosed 4 months previously with adenocarcinoma of the lung but had not sought treatment. Patient was seeing his oncologist and the oncologist found his heart rate to be fast and irregular and he was sent to the ER for evaluation. Patient had recently been diagnosed with an L2 metastasis from his lung cancer. Work-up in the emergency room included an EKG which showed an irregular atrial arrhythmia that appeared to be atrial flutter, patient was given 20 mg of Cardizem and he converted to normal sinus rhythm. Patient had a CTA of the chest performed which showed what appeared to be an obstructive pneumonitis on the left, patient's white blood cell count was 18,000, radiation oncology was contacted by the emergency room physician and radiation oncology requested the patient be placed on 4 mg of Decadron 3 times a day. Patient was mildly hypoxic requiring 2 to 3 L via nasal cannula. Patient was admitted to PCU, he was placed on IV antibiotics and seen in consultation by pulmonary medicine, he was also seen in consultation by radiation oncology who recommended radiation to the left lung and L2 vertebrae. Patient underwent radiation treatments while hospitalized, his oxygen was weaned off, and his back pain was controlled with narcotics. On 08/02/2020, patient was seen and examined: On examination he appeared older than his stated age, his voice was hoarse. Vital signs as documented. Skin warm and dry and without overt rashes. Neck without JVD, neck was supple, trachea midline, thyroid was normal. Lungs clear bilaterally, normal air movement was noted. Heart exam notable for regular rhythm, normal sounds and absence of murmurs, rubs or gallops. Abdomen unremarkable and without evidence of organomegaly, masses, or abdominal aortic enlargement. Bowel sounds are present, abdomen is not distended. Extremities nonedematous, no cyanosis was noted, no clubbing was noted. Neuro: Cranial nerves II through XII are grossly intact, no focal motor deficits were noted, sensation to light touch and pinprick intact, motor exam 5/5 throughout. Psych: Patient is alert and oriented x3, he does not appear anxious or depressed, he does not appear agitated. Patient was ambulated on room air and required 2 L of oxygen to maintain his pulse ox above 88%, his pulse ox on ambulating on room air was 88%. Ambulating with 2 L of oxygen his pulse ox was 94%, and at rest on room air his pulse ox was 94%. Patient was set up with portable oxygen and expected to use it in the home and outside the home on ambulation. On 08/02/2020, patient was seen and examined and felt to be stable for discharge home. Prognosis is guarded. Patient Problems: Active and Suspected Problems (Last Reviewed 07/30/20 @ 09:10 by Luh Sarah) Atrial flutter with rapid ventricular response (Acute) Left adrenal mass (Acute) Left postobstruct pneumonitis (Acute) - Physical Exam Vitals/I&O's: Vital Signs Temp Pulse Resp BP Pulse Ox 98.9 F 108 H 18 152/95 H 96 08/02/20 13:54 08/02/20 13:54 08/02/20 13:54 08/02/20 13:54 08/02/20 13:54 Oxygen Flow Rate (L/min) [ 2 AMBULATION with Oxygen] Oxygen Flow Rate (L/min) 2 Oxygen Delivery Method Room Air Weight: 82.2 kg Body Mass Index (BMI) 26.0 Intake and Output for Last 24 Hours 08/01/20 08/02/20 08/03/20 23:59 23:59 23:59 Intake Total 3365 / 4165 2876.67 / 2876.67 Output Total 700 / 1200 1300 / 1300 Balance 2665 / 2965 1576.67 / 1576.67 Microbiology Past 72 Hours 07/30/20 19:45 Sputum, Expectorated/Coughed Gram Stain - Final 07/30/20 19:45 Sputum, Expectorated/Coughed Respiratory Culture - Final 07/30/20 18:03 Blood Culture (Wb) - Anticubital Left Blood Culture - Preliminary No growth in 48 hours. Discharge Activity: Return to Normal Activity Weight Bearing Status: Full weight bearing Home Medications: Medications to take at Discharge Ascorbic Acid [Vitamin C] 500 mg PO DAILY 05/03/20 Multivitamin 1 ea PO DAILY 05/03/20 Dexamethasone [Decadron] 4 mg PO BIDCM #60 tab 07/30/20 Amoxicillin/Potassium Clav [Augmentin 875-125 Tablet] 1 ea PO BIDCM #14 tab 08/02/20 Apixaban [Eliquis] 5 mg PO Q12 #60 tab 08/02/20 Ipratropium/Albuterol Respimat [Combivent Respimat Inhal [place]] 1 puff INHALATION 4X/DAY #1 inhaler 08/02/20 Metoprolol Tartrate [Lopressor (beta campos)] 50 mg PO BID #60 tab 08/02/20 Oxycodone CR [Oxycontin] 20 mg PO TID 20 Days #60 tab 08/02/20 Oxycodone [Oxyir] 10 - 15 mg PO Q4H PRN PRN 7 Days #60 tab 08/02/20 Polyethylene Glycol 3350 [Miralax] 17 gm PO DAILY packet 08/02/20 Senna/Docusate Sodium [Senokot-S] 2 tab PO BID tab 08/02/20 Following Prescriptions Were Given to Patient: Amoxicillin/Potassium Clav [Augmentin 875-125 Tablet] 1 ea PO BIDCM #14 tab Transmission Status: Re[facility] by [id number] Ipratropium/Albuterol Respimat [Combivent Respimat Inhal [place]] 1 puff INHALATION 4X/DAY #1 inhaler Transmission Status: Re[facility] by [id number] Apixaban [Eliquis] 5 mg PO Q12 #60 tab Transmission Status: Received by [id number] Metoprolol Tartrate [Lopressor (beta campos)] 50 mg PO BID #60 tab Transmission Status: Received by [id number] Oxycodone CR [Oxycontin] 20 mg PO TID 20 Days #60 tab Transmission Status: Re[facility] by [id number] Oxycodone [Oxyir] 10 - 15 mg PO Q4H PRN PRN 7 Days #60 tab PRN Reason: Pain Score 4-10 Transmission Status: Received by [id number] Other Amb Orders: RAD ONC: CT Sim [RAD.ONC.[facility]] Facility: [facility], Location: [facility] Primary Care Physician: Carlos Camarillo DO [Primary Care Provider] - Please follow up with your Primary Care Physician in: in 2-3 weeks Please Follow Up With: Bandar Silverman MD When: as directed Please Follow Up With: Bryan Pritchard DO When: as directed Please Follow Up With: Miguel Camarillo DO When: IN 2 WEEKS-CALL FOR APPOINTMENT Disposition: Home Minutes spent on discharge:: 33 Patient Condition:: Stable Medical Necessity - Tobacco Use Smoking Status: Former smoker Meaningful Use Info Meaningful Use Diagnoses (Choose all that apply): None applicable Inpatient E&M: 32003 Disch Hosp
--- NOTE | 2020-08-03 18:12 | CASEMGMT ---
ROCHELLE OAKES Discharge Follow-up Phone Call: YOBANI: 12 Strata:3 Call Date:08/03/2020 Discharge Date: 08/02/2020 Time of Call: 1610 Admitting Diagnosis: Afib RVR, Pneumonitis, Lung CA with mets Discharge follow-up call placed to pt's cell phone. Pt's answered the phone and provided update on pt. She states pt has been doing well since discharge. They are using the oxycodone which has been effective. She states today was better than yesterday. Pt has not been eating well and she did obtain Boost drinks and pt is currently eating yogurt as recommended by the dietitian. Medications were obtained and he has been taking them as directed. She denied any questions regarding the medications or the discharge instructions. They have follow-up appointments made and an MRI and PET scan scheduled for next week. She denied any further concerns or questions. Jigar Joseph RN CM
== END 2020-08-02 13:50 | disposition home or self-care (01) | DRG 871 ==
LOC: ED 11:08 → PCU 12:47
PROVIDERS: Internal Medicine Medical Oncology; Admitting Provider Internal Medicine; Emergency Provider Emergency Medicine; PCP Family Medicine; Visit Provider Internal Medicine
DX: A41.9 Sepsis, unspecified organism (principal); J18.9 Pneumonia, unspecified organism; I48.92 Unspecified atrial flutter; C79.72 Secondary malignant neoplasm of left adrenal gland; J44.0 Chronic obstructive pulmonary disease with (acute) lower respiratory infection; C79.51 Secondary malignant neoplasm of bone; C34.32 Malignant neoplasm of lower lobe, left bronchus or lung; M48.061 Spinal stenosis, lumbar region without neurogenic claudication; R65.20 Severe sepsis without septic shock; I48.91 Unspecified atrial fibrillation; J38.00 Paralysis of vocal cords and larynx, unspecified; Z87.891 Personal history of nicotine dependence
CPT/HCPCS: 36415; 71275; 77014; 77280; 77290; 77295; 77300; 77307; 77334; 77387; 77412; 80048; 80061; 81001; 82040; 82247; 83605; 83615; 83735; 84075; 84100; 84443; 84450; 84460; 84484; 84550; 85025; 87040; 87070; 87205; 87449; 87633; 87635; 87641; 92526; 92610; 93005; 93306; 94640; 94667; 94668; 97161; 97166; 97530; 97802; 99251; 99282; 99285; J7030; J7040; Q9957; Q9967; A4216; G0463; J2405; U0003

== ENCOUNTER → 2020-08-09 12:41 | Outpatient (CLI) | payer MEDICARE, OTHER, SELFPAY ==
[2020-07-30 16:58] VITALS: BMI 26.0
--- NOTE | 2020-08-09 12:42 | MRI_ITS ---
STUDY: MRI BRAIN WITH AND WITHOUT CONTRAST REASON FOR EXAM: Male, 65 years old. stage iv lung ca staging, eval for mets, R ARM WEAKNESS TECHNIQUE: Standardized multiplanar fat and water weighted pulse sequences were obtained. IV 15cc doatarem was administered for the contrast portion of the examination. COMPARISON: None. FINDINGS: There is mild cerebral atrophy with widening of the extra-axial spaces and ventricular dilatation. There are multiple white matter hyperintensities, distributed throughout the deep white matter tracts of the cerebral hemispheres, consistent with moderate chronic white matter ischemic changes. Possible minute focus of restricted diffusion post central gyrus on the right. Normal bilateral basal ganglia. Normal thalami. There is no extra-axial fluid accumulation. Normal flow voids within the major intracranial circulation suggesting patency by spin echo criteria. Normal venous enhancement. There is no enhancing intra-axial or extra-axial abnormality. Normal sella turcica, pituitary gland, infundibular stalk, optic chiasm and hypothalamus. Normal tectal plate and pineal gland. Normal midbrain, em and medulla. Normal cerebellum. Normal basal cisterns. Normal bilateral temporal bones. Normal bilateral internal auditory canals. Lens implant on the left. Normal visualized paranasal sinuses. Normal calvarium and skull base. Normal visualized soft tissue structures. Normal visualized upper cervical spine. MRI/Brain W/WO Contrast IMPRESSION: Possible minute focus of restricted diffusion posterior central gyrus on the right. This may also represent artifact. It does not appear typical for metastatic disease but CT may be helpful for further characterization. No edema or enhancement to suggest metastatic disease otherwise. Electronically Signed: Maikel Ahuja MD at 19:17 EDT , Service support ,
== END ==
PROVIDERS: PCP Family Medicine; Referring Provider Student in an Organized Health Care Education/Training Program; Visit Provider Student in an Organized Health Care Education/Training Program
DX: C34.90 Malignant neoplasm of unspecified part of unspecified bronchus or lung (principal)
CPT/HCPCS: 70553; 77014; 77290; 77295; 77387; 77412; A9575